=== PATIENT | male | born 1940 | race Caucasian/White ===

== ENCOUNTER 2016-05-26 16:09 | Emergency (ER) | payer MEDICARE, OTHER ==
--- NOTE | 2016-05-26 16:38 | ER Document Report ---
ED General <KATLIN KIM - Last Filed: 05/26/16 21:24> - General Mode of Arrival: Medic Information source: Relative Cannot obtain history due to: Dementia - and Alzheimer's - HPI Onset: Other - see narrative Quality of pain: No pain Recently seen / treated by doctor: Yes <OLIMPIA STRATTON - Last Filed: 05/26/16 21:54> - General Chief Complaint: Chest Pain Stated Complaint: RAPID HEART RATE Notes: Patient is a 75 year old male that presents to the emergency department today with complaints of vomiting and diarrhea which began prior to arrival. According to family at bedside, the patient was at a routine doctor's appointment today to be established as a new patient as they recently moved here , when he began having diarrhea/vomiting and he turned "sosa". Family reports that the provider at the PCPs office told them to come here to be evaluated. According to EMS, the patient was hypotensive and bradycardic on arrival. History is limited secondary to the patient's dementia and Alzheimer's. (OLIMPIA STRATTON) - Related Data Allergies/Adverse Reactions: lisinopril [Lisinopril] Allergy (Verified 04/15/12 13:50) Past Medical History - General Information source: Patient, Friend, H Records Cannot obtain history due to: Dementia - Alzheimer's - Social History Smoking Status: Former Smoker Cigarette use (# per day): No Frequency of alcohol use: None Drug Abuse: None Lives with: Family Family History: Reviewed & Not Pertinent - Past Medical History Cardiac Medical History: Reports: Hx Atrial Fibrillation, Hx Hypertension Pulmonary Medical History: Reports: Hx COPD Neurological Medical History: Reports: 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 according to Malignancy Medical History: Reports Other - bladder cancer GI Medical History: Reports: Hx Gastroesophageal Reflux Disease Psychiatric Medical History: Reports: Hx Dementia, Other - Alzheimer's Disease Past Surgical History: Reports: Hx Appendectomy <OLIMPIA STRATTON - Last Filed: 05/26/16 21:54> Review of Systems - Review of Systems Constitutional: No symptoms reported EENT: No symptoms reported Cardiovascular: See HPI, Other - hypotensive and bradycardic according to EMS Respiratory: No symptoms reported Gastrointestinal: See HPI, Diarrhea, Vomiting Genitourinary: No symptoms reported Male Genitourinary: No symptoms reported Musculoskeletal: No symptoms reported Skin: No symptoms reported Hematologic/Lymphatic: No symptoms reported Neurological/Psychological: No symptoms reported -: Yes All other systems reviewed and negative <VIRALSHAQOLIMPIA - Last Filed: 05/26/16 21:54> Physical Exam - General General appearance: Alert In distress: None - HEENT Head: Normocephalic, Atraumatic Eyes: Normal - Respiratory Respiratory status: No respiratory distress Chest status: Nontender Breath sounds: Normal - Cardiovascular Rhythm: Regular Heart sounds: Normal auscultation Murmur: No - Abdominal Distension: No distension Bowel sounds: Hyperactive Tenderness: Nontender - Extremities General upper extremity: Normal inspection, Nontender. No: Edema, Normal ROM General lower extremity: Normal inspection, Nontender. No: Edema, Normal ROM - Neurological Cognition: Other - pleasantly demented at baseline Speech: Normal - Psychological Associated symptoms: Normal affect, Normal mood - Skin Skin Temperature: Warm Skin Moisture: Dry Skin Color: Normal <VIRALOLIMPIA - Last Filed: 05/26/16 21:54> - Vital signs Vitals: Pulse Ox 95 05/26/16 16:20 Course - Laboratory Result Diagrams: 05/26/16 16:25 05/26/16 16:25 - Diagnostic Test Radiology reviewed: Image reviewed, Reports reviewed - Chest x-ray does not show an acute process - EKG Interpretation by Me EKG shows normal: Sinus rhythm, [place], Intervals, QRS Complexes, ST-T Waves Rate: Normal - 51 Rhythm: NSR <KATLIN KIM - Last Filed: 05/26/16 21:24> - Laboratory Result Diagrams: 05/26/16 16:25 05/26/16 16:25 <OLIMPIA STRATTON - Last Filed: 05/26/16 21:54> - Re-evaluation Re-evalutation: 05/26/16 21:24 Age and has had 2 L normal saline. The patient's heart rate is now up around 70. He has not had any diarrhea since he got here according to the family. The only logical explanation I can find for his symptoms are the episode of nausea vomiting diarrhea caused a vagal type reaction in the office, but the persistent bradycardia may well be due to an accidental extra dose of his atenolol. The family will be very careful by his medications. (KATLIN KIM) - Vital Signs Vital signs: Temp Pulse Resp BP Pulse Ox 14 139/56 H 98 05/26/16 20:01 05/26/16 20:01 05/26/16 20:01 - Laboratory Laboratory results interpreted by me: 05/26/16 05/26/16 05/26/16 16:25 16:25 17:40 Seg Neutrophils % 85.0 H Lymphocytes % 7.3 L Chloride 110 H Calcium 7.1 L Creatine Kinase 29 L Total Protein 4.6 L Albumin 2.3 L Urine Urobilinogen 2.0 H Discharge <KATLIN KIM - Last Filed: 05/26/16 21:24> <OLIMPIA STRATTON - Last Filed: 05/26/16 21:54> - Discharge Clinical Impression: Bradycardia Hypotension Qualifiers: Hypotension type: unspecified hypotension type Qualified Code(s): I95.9 - Hypotension, unspecified Diarrhea Qualifiers: Diarrhea type: unspecified type Qualified Code(s): R19.7 - Diarrhea, unspecified Dementia Qualifiers: Dementia type: Alzheimer's disease Alzheimer's disease onset: late-onset Dementia behavioral disturbance: without behavioral disturbance Qualified Code(s ): G30.1 - Alzheimer's disease with late onset Condition: Stable Disposition: HOME, SELF-CARE Additional Instructions: Continue his regular medication regimen. Drink plenty of fluids this evening. Follow-up with your primary care provider when you can make another appointment. RETURN TO THE EMERGENCY ROOM IF ANY NEW OR WORSENING SYMPTOMS. Scribe Attestation: 05/26/16 21:26 I personally performed the services described in the documentation, reviewed and edited the documentation which was dictated to the scribe in my presence, and it accurately records my words and actions. (KATLIN KIM) Scribe Documentation - Scribe Written by Rosemaryibenriqueta:: Yolanda Naik, 1755 05/26/16 acting as scribe for :: [place] <OLIMPIA STRATTON - Last Filed: 05/26/16 21:54>
[2016-05-26 16:57] LABS: ABSOLUTE LYMPHOCYTES (AUTO) 0.6 10^3/uL (0.5-4.7); ABSOLUTE MONOCYTES (AUTO) 0.5 10^3/uL (0.1-1.4); ABSOLUTE NEUT (AUTO) 6.6 10^3/uL (1.7-8.2); BASOPHILS % (AUTO) 0.5 % (0-2); EOSINOPHILS % (AUTO) 0.3 % (0-6); HEMATOCRIT 45.2 % (37.9-51.0); HEMOGLOBIN 14.6 g/dL (13.5-17.0); HGB HCT DIFFERENCE -1.4; LYMPHOCYTES % (AUTO) 7.3 % (13-45); MEAN CORPUSCULAR HEMOGLOBIN 31.2 pg (27.0-33.4); MEAN CORPUSCULAR HGB CONC 32.3 g/dL (32.0-36.0); MEAN CORPUSCULAR VOLUME 97 fl (80-97); MONOCYTES % (AUTO) 6.9 % (3-13); RED BLOOD COUNT 4.68 10^6/uL (4.35-5.55); RED CELL DISTRIBUTION WIDTH 13.1 % (11.5-14.0); WHITE BLOOD COUNT 7.8 10^3/uL (4.0-10.5)
[2016-05-26 17:00] LABS: ALANINE AMINOTRANSFERASE 24 U/L (21-72); ALBUMIN 2.3 g/dL (3.5-5.0); ALKALINE PHOSPHATASE 43 U/L (38-126); ANION GAP 8 (5-19); ASPARTATE AMINO TRANSFERASE 18 U/L (17-59); BILIRUBIN,TOTAL 0.9 mg/dL (0.2-1.3); BLOOD UREA NITROGEN 14 mg/dL (7-20); CALCIUM 7.1 mg/dL (8.4-10.2); CARBON DIOXIDE 24 mmol/L (22-30); CHLORIDE 110 mmol/L (98-107); CREATINE KINASE 29 U/L (55-170); CREATININE RESULT 0.99 mg/dL (0.52-1.25); GLUCOSE 103 mg/dL (75-110); MAGNESIUM 1.6 mg/dL (1.6-2.3); POTASSIUM 3.9 mmol/L (3.6-5.0); TOTAL PROTEIN 4.6 g/dL (6.3-8.2)
[2016-05-26 17:12] LABS: CREATINE KINASE MB 0.32 ng/mL (<4.55)
[2016-05-26 17:13] LABS: TROPONIN I < 0.012 ng/mL
[2016-05-26 18:02] LABS: APPEARANCE,URINE SLIGHTLY-CLOUDY; BILIRUBIN,URINE NEGATIVE (NEGATIVE); GLUCOSE, URINE NEGATIVE (NEGATIVE); KETONES,URINE NEGATIVE (NEGATIVE); LEUKOCYTE ESTERASE,URINE NEGATIVE (NEGATIVE); NITRITE,URINE NEGATIVE (NEGATIVE); PROTEIN,URINE NEGATIVE (NEGATIVE); URINE SPECIFIC GRAVITY 1.019
[2016-05-26] MEDS ORDERED: NORMAL SALINE 1000 ML 1,000 ML IV ONE (18:15)
[2016-05-26] MEDS ORDERED: RINGERS SOLUTION,LACTATED 1,000 ML IV ONE (19:26)
[2016-05-26 22:19] VITALS: BP 108/61
--- NOTE | 2016-05-27 18:42 | EKG REPORT ---
SEVERITY:- NORMAL ECG - SINUS RHYTHM : Confirmed by: Valeri Perrin MD 27-May-2016 18:41:45
== END 2016-05-26 22:20 | disposition home or self-care (01) ==
LOC: ER 16:09
DX: R00.1 Bradycardia, unspecified (principal); I95.9 Hypotension, unspecified; R11.10 Vomiting, unspecified; R19.7 Diarrhea, unspecified; G30.1 Alzheimer's disease with late onset; F02.80 Dementia in other diseases classified elsewhere, unspecified severity, without behavioral disturbance, psychotic disturbance, mood disturbance, and anxiety; I48.91 Unspecified atrial fibrillation; I10 Essential (primary) hypertension; I69.951 Hemiplegia and hemiparesis following unspecified cerebrovascular disease affecting right dominant side; K21.9 Gastro-esophageal reflux disease without esophagitis; Z87.891 Personal history of nicotine dependence
CPT/HCPCS: 99284; 96360; 36415; 87040; 82553; 82550; 83735; 85025; 80053; 81001; 84484; 71010; 93010; J7030; J7120

== ENCOUNTER 2016-10-11 23:15 | Emergency (ER) | payer MEDICARE, OTHER ==
[2016-10-11] MEDS ORDERED: ACETAMINOPHEN 325 MG TABLET ONE (23:50)
--- NOTE | 2016-10-11 23:57 | RADIOLOGY REPORT (SQ) ---
EXAM DESCRIPTION: CHEST SINGLE VIEW COMPLETED DATE/TIME: 10/11/2016 11:48 pm REASON FOR STUDY: r/o sepsis COMPARISON: 05/26/2016 EXAM PARAMETERS: NUMBER OF VIEWS: One view. TECHNIQUE: Single frontal radiographic view of the chest acquired. RADIATION DOSE: NA LIMITATIONS: None. FINDINGS: LUNGS AND PLEURA: No opacities, masses or pneumothorax. No pleural effusion. MEDIASTINUM AND HILAR STRUCTURES: No masses. Contour normal. HEART AND VASCULAR STRUCTURES: Heart normal in size. Normal vasculature. BONES: No acute findings. HARDWARE: None in the chest. OTHER: No other significant finding. IMPRESSION: NO ACUTE RADIOGRAPHIC FINDING IN THE CHEST. TECHNICAL DOCUMENTATION: JOB ID: [id number]
[2016-10-12] LABS: VENOUS BLOOD BASE EXCESS 1.7 mmol/L; VENOUS BLOOD HCO3 27.7 mmol/L (20-32); VENOUS BLOOD PCO2 48.4 mmHg (35-63); VENOUS BLOOD PH 7.38 (7.30-7.42)
[2016-10-12 00:01] LABS: HEMATOCRIT 47.3 % (37.9-51.0); HEMOGLOBIN 15.3 g/dL (13.5-17.0); HGB HCT DIFFERENCE -1.4; MEAN CORPUSCULAR HEMOGLOBIN 31.2 pg (27.0-33.4); MEAN CORPUSCULAR HGB CONC 32.3 g/dL (32.0-36.0); MEAN CORPUSCULAR VOLUME 97 fl (80-97); RED CELL DISTRIBUTION WIDTH 13.3 % (11.5-14.0); WHITE BLOOD COUNT 15.5 10^3/uL (4.0-10.5)
[2016-10-12 00:12] LABS: PROTHROMBIN TIME 16.6 SEC (11.4-15.4)
[2016-10-12] MEDS ORDERED: ACETAMINOPHEN 325 MG TABLET PO ONE (00:16)
[2016-10-12 00:18] LABS: ALANINE AMINOTRANSFERASE 25 U/L (21-72); ALBUMIN 3.7 g/dL (3.5-5.0); ALKALINE PHOSPHATASE 65 U/L (38-126); ANION GAP 11 (5-19); ASPARTATE AMINO TRANSFERASE 20 U/L (17-59); BILIRUBIN,DIRECT 0.3 mg/dL (0.0-0.4); BILIRUBIN,TOTAL 1.3 mg/dL (0.2-1.3); BLOOD UREA NITROGEN 15 mg/dL (7-20); CALCIUM 8.7 mg/dL (8.4-10.2); CARBON DIOXIDE 25 mmol/L (22-30); CHLORIDE 103 mmol/L (98-107); CREATININE RESULT 1.08 mg/dL (0.52-1.25); GLUCOSE 122 mg/dL (75-110); SODIUM 138.7 mmol/L (137-145); TOTAL PROTEIN 6.5 g/dL (6.3-8.2)
[2016-10-12 00:29] LABS: BAND NEUTROPHILS % (MANUAL) 3 % (3-5); BASOPHILS % (MANUAL) 0 % (0-2); EOSINOPHILS % (MANUAL) 0 % (0-6); LYMPHOCYTES % (MANUAL) 4 % (13-45); TOTAL CELLS COUNTED 100
[2016-10-12 00:33] LABS: PLATELET CLUMPS PRESENT; RBC MORPHOLOGY COMMENT NORMO-CYTIC/CHROMIC
[2016-10-12 01:04] LABS: APPEARANCE,URINE SLIGHTLY-CLOUDY; BILIRUBIN,URINE NEGATIVE (NEGATIVE); GLUCOSE, URINE NEGATIVE (NEGATIVE); KETONES,URINE NEGATIVE (NEGATIVE); LEUKOCYTE ESTERASE,URINE TRACE (NEGATIVE); NITRITE,URINE NEGATIVE (NEGATIVE); PROTEIN,URINE 100 mg/dL (NEGATIVE); UROBILINOGEN,URINE NEGATIVE mg/dL (<2.0)
[2016-10-12] MEDS ORDERED: CEFTRIAXONE 1 GM/D5W RTU 50 ML IV ONE (01:31)
--- NOTE | 2016-10-12 01:32 | ER Document Report ---
ED GI/ - General Chief Complaint: Fever Stated Complaint: ALTERED MENTAL STATUS Time Seen by Provider: 10/11/16 23:37 Notes: The patient is a 75-year-old male, past medical history Alzheimer's, A. fib (on Atenolol and Eliquiis, only takes sometimes), bladder cancer, presents with 1 day of foul-smelling urine and dysuria. He is also having a fever of 100.5 at home. According to his and daughter, his mental status is at baseline. He denies nausea, vomiting, diarrhea, constipation, chest pain, SOB or increased confusion. 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 RESPIRATORY: -cough, -SOB GASTROINTESTINAL: -abdominal pain, -nausea, -vomiting, -diarrhea GENITOURINARY: +dysuria, -hematuria MUSCULOSKELETAL: -back pain, -neck pain SKIN: -rash or skin lesions. HEMATOLOGIC: -easy bruising or bleeding. LYMPHATIC: -swollen, enlarged glands. NEUROLOGICAL: -altered mental status or loss of consciousness, -headache, - neurologic symptoms PSYCHIATRIC: -anxiety, -depression. ALL OTHER SYSTEMS REVIEWED AND NEGATIVE. Physical Exam - Vital signs Vitals: Temp Resp BP Pulse Ox 99.7 F 15 148/110 H 97 10/11/16 23:25 10/11/16 23:25 10/11/16 23:25 10/11/16 23:25 - Notes Notes: PHYSICAL EXAMINATION: GENERAL: Well-appearing, well-nourished and in no acute distress. HEAD: Atraumatic, normocephalic. EYES: Pupils equal round and reactive to light, extraocular movements intact, sclera anicteric, conjunctiva are normal. ENT: nares patent, oropharynx clear without exudates. Moist mucous membranes. NECK: Normal range of motion, supple without lymphadenopathy LUNGS: Breath sounds clear to auscultation bilaterally and equal. No wheezes rales or rhonchi. HEART: Regular rate and rhythm without murmurs ABDOMEN: Soft, nontender, normoactive bowel sounds. No guarding, no rebound. No masses appreciated. EXTREMITIES: Normal range of motion, no pitting or edema. No cyanosis. NEUROLOGICAL: Mildly confused. Slow to respond (baseline, according to and daughter) PSYCH: Normal mood, normal affect. SKIN: Warm, Dry, normal turgor, no rashes or lesions noted. Course - Re-evaluation Re-evalutation: Pt with evidence of UTI/Pyelonephritis. After IV fluids and antibiotics, offered patient admission for further IV antibiotics and treatment. Using shared decision making with her daughter, and patient, they would like to try antibiotics by mouth because his mental status is at baseline. Pt vomited after Pyridium, but feels better after Zofran. Will send home with Zofran and Pyridium. Given strict return precautions and he understands. - Vital Signs Vital signs: Temp Pulse Resp BP Pulse Ox 99.7 F 14 183/122 H 97 10/11/16 23:25 10/12/16 01:00 10/12/16 00:33 10/12/16 01:00 - Laboratory Result Diagrams: 10/11/16 23:33 10/11/16 23:33 Laboratory results interpreted by me: 10/11/16 10/11/16 10/11/16 23:33 23:33 23:33 WBC 15.5 H Seg Neuts % (Manual) 90 H Lymphocytes % (Manual) 4 L Monocytes % (Manual) 2 L Abs Neuts (Manual) 14.4 H PT 16.6 H Glucose 122 H Urine Protein Urine Blood Ur Leukocyte Esterase 10/12/16 00:18 WBC Seg Neuts % (Manual) Lymphocytes % (Manual) Monocytes % (Manual) Abs Neuts (Manual) PT Glucose Urine Protein 100 H Urine Blood LARGE H Ur Leukocyte Esterase TRACE H - Diagnostic Test Radiology reviewed: Image reviewed, Reports reviewed Radiology results interpreted by me: CXR: NAD - EKG Interpretation by Me EKG shows normal: Emmalena, Intervals, QRS Complexes Rate: Tachycardia - 102 Rhythm: A.Fib Discharge - Discharge Clinical Impression: UTI (urinary tract infection) Qualifiers: Urinary tract infection type: site unspecified Hematuria presence: without hematuria Qualified Code(s): N39.0 - Urinary tract infection, site not specified Condition: Stable Disposition: HOME, SELF-CARE Additional Instructions: PYELONEPHRITIS: Your evaluation shows evidence of pyelonephritis. This is an infection in the kidney. Typical symptoms are fever, pain in the flank, pain on urination, and frequent urination. Many cases of pyelonephritis can be treated at home. Hospital care may be necessary for patients who are very ill, or elderly or . Pyelonephritis is treated with antibiotics. Be sure to take all the medication as prescribed. Drink plenty of liquids (about three quarts per day) . You may take acetaminophen for fever. You should feel significantly improved within two days. You should have a recheck of your urine in about one week to insure that the infection is gone. Return for a re-examination if your symptoms worsen in any way -- such as high fever, shaking chills, severe weakness or dizziness, severe pain, or inability to pass your urine. ANTINAUSEA MEDICATION: You have been given a medication to suppress nausea and vomiting. This type of medication can be given as a shot, pill, or suppository. It will usually last for many hours. Pills and shots usually last six to eight hours, suppositories last about 12 hours. For the typical illness, only one or two doses of the medication may be necessary. Mild lightheadedness may occur. This type of medicine can cause drowsiness. Do not drive or operate dangerous machinery while under its influence. Do not mix with alcohol. See your doctor at once if you have muscle spasms or tightness, or uncontrollable motions (particularly of the neck, mouth, or jaw). Persistent vomiting or severe lightheadedness should also be evaluated by the physician. ANTIBIOTIC THERAPY: You have been given an antibiotic prescription. It's important that you take all the medication, unless instructed otherwise by your physician. Failure to complete the entire course can result in relapse of your condition. Common side effects of antibiotics include nausea, intestinal cramping, or diarrhea. Women may develop vaginal yeast infections, and babies can get yeast (thrush) in the mouth following the use of antibiotics. Contact your physician if you develop significant side effects from this medication. Allergy to this antibiotic can result in hives, wheezing, faintness, or itching. If symptoms of allergy occur, stop the medication and call the doctor. ROCEPHIN: You have been given an injection of an antibiotic called Rocephin ( ceftriaxone). Sometimes the injection must be combined with antibiotic pills. For some infections, such as an uncomplicated ear infection, Rocephin provides all the antibiotic that's needed. The antibiotic will be in your body for about two days. For serious infections, we usually repeat doses of Rocephin daily. Side effects are very unusual following a shot. Women may develop vaginal yeast infections, and babies can get yeast (thrush) in the mouth following the use of antibiotics. Contact your physician if you have symptoms with this medication. Allergy to this antibiotic can result in hives, wheezing, faintness, or itching. If symptoms of allergy occur, call the doctor at once. CEPHALEXIN: The antibiotic you've been prescribed is a member of the cephalosporin class. This type of antibiotic covers a wide variety of infections, including those of the skin, lungs, and urinary tract. It's useful for staph infections. This antibiotic is slightly similar to the penicillin family. In rare cases , a person who is allergic to penicillin will also be allergic to this medication. If you have had a severe allergic reaction to penicillin, and have not taken this antibiotic since that time, notify your doctor. Antibiotics which cover many germs ("broad spectrum" antibiotics) are more likely to cause diarrhea or "yeast" infections. Women prone to vaginal yeast problems may suffer an attack after taking this antibiotic. In infants, oral thrush (white spots "stuck" on the cheek) or yeast diaper rash may result. See your doctor if these problems occur. Call at once if you develop itching, hives , shortness of breath, or lightheadedness. USE OF ACETAMINOPHEN (Tylenol): Acetaminophen may be taken for pain relief or fever control. It's much safer than aspirin, offering a wider range of "safe" dosages. It is safe during . Some brand names are Tylenol, Panadol, Datril, Anacin 3, Tempra, and Liquiprin. Acetaminophen can be repeated every four hours. The following are maximum recommended dosages: >89 pounds or adults 650 mg to 900 mg Acetaminophen can be repeated every four hours. Maximum dose not to exceed 4000 mg a day. FOLLOW-UP CARE: If you have been referred to a physician for follow-up care, call the physician s office for an appointment as you were instructed or within the next two days. If you experience worsening or a significant change in your symptoms, notify the physician immediately or return to the Emergency Department at any time for re-evaluation. Prescriptions: Cephalexin Monohydrate [Keflex 500 mg Capsule] 500 mg PO Q8H #30 capsule Ondansetron [Zofran Odt 4 mg Tablet] 1 - 2 tab PO Q4H PRN #15 tab.rapdis PRN Reason: For Nausea/Vomiting Phenazopyridine HCl [Pyridium 200 mg Tablet] 200 mg PO TID #15 tablet Referrals: FLORES MCNAMARA [Primary Care Provider] - Follow up as needed
[2016-10-12] MEDS ORDERED: PHENAZOPYRIDINE HCL 200 MG TABLET PO ONE (01:34)
[2016-10-12] MEDS ORDERED: NORMAL SALINE 1000 ML 1,000 ML IV ONE (01:34)
[2016-10-12] MEDS ORDERED: ONDANSETRON HCL INJ/PF 4 MG/2 ML SDV IV ONE (02:51)
[2016-10-12 03:16] VITALS: BP 105/79
[2016-10-12] MEDS ORDERED: ONDANSETRON ODT 4 MG TAB (6 TAB/DSPK) PO PRN (03:20)
--- NOTE | 2016-10-13 09:50 | EKG REPORT ---
SEVERITY:- ABNORMAL ECG - ATRIAL FIBRILLATION LAD, CONSIDER LEFT ANTERIOR FASCICULAR BLOCK : Confirmed by: Juan A Hardin 13-Oct-2016 09:50:16
== END 2016-10-12 03:30 | disposition home or self-care (01) ==
LOC: ER 23:15
DX: N12 Tubulo-interstitial nephritis, not specified as acute or chronic (principal); G30.9 Alzheimer's disease, unspecified; F02.80 Dementia in other diseases classified elsewhere, unspecified severity, without behavioral disturbance, psychotic disturbance, mood disturbance, and anxiety; R00.0 Tachycardia, unspecified; I48.91 Unspecified atrial fibrillation; I10 Essential (primary) hypertension; J44.9 Chronic obstructive pulmonary disease, unspecified; Z85.51 Personal history of malignant neoplasm of bladder; Z88.8 Allergy status to other drugs, medicaments and biological substances
CPT/HCPCS: 93005; 99284; 96375; 96365; 36415; 87040; 87086; 85025; 85610; 87077; 87088; 80053; 81001; 87186; 82803; 83605; 71010; 93010; A9270 ×2; J2405; J7030; J0696; J3490

== ENCOUNTER 2016-10-22 22:35 | Emergency (ER) | payer MEDICARE, OTHER ==
[2016-10-22 23:06] LABS: ABSOLUTE BASOPHILS # (AUTO) 0.1 10^3/uL (0.0-0.2); ABSOLUTE EOSINOPHILS # (AUTO) 0.1 10^3/uL (0.0-0.6); ABSOLUTE LYMPHOCYTES (AUTO) 1.2 10^3/uL (0.5-4.7); ABSOLUTE MONOCYTES (AUTO) 0.5 10^3/uL (0.1-1.4); ABSOLUTE NEUT (AUTO) 7.6 10^3/uL (1.7-8.2); BASOPHILS % (AUTO) 1.4 % (0-2); EOSINOPHILS % (AUTO) 1.4 % (0-6); HEMATOCRIT 42.8 % (37.9-51.0); HEMOGLOBIN 14.1 g/dL (13.5-17.0); HGB HCT DIFFERENCE -0.5; LYMPHOCYTES % (AUTO) 12.1 % (13-45); MEAN CORPUSCULAR HEMOGLOBIN 31.2 pg (27.0-33.4); MEAN CORPUSCULAR VOLUME 95 fl (80-97); RED BLOOD COUNT 4.53 10^6/uL (4.35-5.55); SEGMENTED NEUTROPHILS % (AUTO) 80.1 % (42-78); WHITE BLOOD COUNT 9.5 10^3/uL (4.0-10.5)
--- NOTE | 2016-10-22 23:14 | ER Document Report ---
ED General - General Stated Complaint: ISSUES WITH STOOL/WEAKNESS Time Seen by Provider: 10/22/16 22:58 Notes: Patient is a 75-year-old male with a history of severe dementia and Alzheimer' s. He lives with his . The daughter also helps care for the patient. He was seen here approximately week ago and placed on antibiotics for UTI. Recently has been having diarrhea. Today the noticed a small amount of blood in the stool and some mucus in the stool. He has been weak and has not been eating or drinking very much. They therefore brought him to the ER. No fevers at home. No vomiting. He has intermittently complained of lower abdominal pain. did give him Immodium earlier today because of the diarrhea. 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 Denies recent illness. RESPIRATORY: Denies cough, cold, or chest congestion. Denies shortness of breath, difficulty breathing, or wheezing. GASTROINTESTINAL: Lower abdominal pain. Diarrhea. GENITOURINARY: Denies difficulty urinating, painful urination, burning, frequency, or blood in urine. MUSCULOSKELETAL: Denies neck or back pain or joint pain or swelling. SKIN: Denies rash or skin lesions. NEUROLOGICAL: Denies altered mental status or loss of consciousness. Denies headache. Denies weakness or paralysis or loss of use of either side. Denies problems with gait or speech. Denies sensory or motor loss. ALL OTHER SYSTEMS REVIEWED AND NEGATIVE. Physical Exam - Vital signs Vitals: Resp Pulse Ox 13 95 10/22/16 22:54 10/22/16 22:54 - Notes Notes: General Appearance: Well nourished, alert, cooperative, no acute distress, no obvious discomfort. Vitals: reviewed, See vital signs table. Head: no swelling or tenderness to the head Eyes: PERRL, EOMI, Conjuctiva clear Mouth: No decreasd moisture Lungs: No wheezing, No rales, No rhonci, No accessory muscle use, good air exchange bilaterally. Heart: Normal rate, Regular rythm, No murmur, no rub Abdomen: Normal BS, soft, No rigidity, No abdominal tenderness, No guarding, no rebound, no abdominal masses, no organomegaly Extremities: strength 5/5 in all extremities, good pulses in all extremities, no swelling or tenderness in the extremities, no edema. Skin: warm, dry, appropriate color, no rash Neuro: speech clear, oriented x 1, she does not answer questions appropriately because of severe dementia. No focal neurologic deficits on exam. He will follow commands. Course - Vital Signs Vital signs: Temp Pulse Resp BP Pulse Ox 99 F 53 L 16 161/64 H 96 10/22/16 23:00 10/22/16 23:00 10/23/16 01:00 10/23/16 01:01 10/23/16 01:01 - Laboratory Result Diagrams: 10/22/16 22:55 10/22/16 22:55 Laboratory results interpreted by me: 10/22/16 10/22/16 22:55 22:55 Seg Neutrophils % 80.1 H Lymphocytes % 12.1 L Potassium 3.3 L Total Protein 6.0 L Albumin 3.3 L - EKG Interpretation by Me Additional EKG results interpreted by me: 10/22/16 23:27 EKG is reviewed and interpreted by me. EKG shows sinus bradycardia with a rate of [address] segment elevation or depression. No new ischemic changes comparison to his previous EKG from May 26, 2016. NM interval, QRS duration , QTc intervals are within normal range. 10/22/16 23:29 - Transfer of Care Notes: 10/23/16 01:18 Patient has C. difficile diarrhea. I did speak with the and daughter. I will have him stop the Keflex. I will give him Flagyl. I will give him the first dose of Flagyl here to the IV. The is very exhausted and tired because she has been awake though over the last 12 hours. I informed her that she can go home and get some rest and that she can come back first in the morning to pick him up for discharge. She is appreciative of this. Discharge - Discharge Clinical Impression: C. difficile diarrhea, Hypokalemia Condition: Good Disposition: HOME, SELF-CARE Additional Instructions: Please be sure to wash your hands thoroughly after helping or cleaning patient as C.Diff is contagious. Please bring Mr. Webb back to the ER immediately if he develop fevers, vomiting, worsening abdominal pain, or appears unwell. Please stop taking the Keflex. Please follow up with your doctor Thursday or Thursday. Please inform his home health care providers of the c.diff infection so they take precautions not to spread the infection. Prescriptions: Metronidazole [Flagyl 500 mg Tablet] 500 mg PO Q6H #28 tablet
[2016-10-22 23:24] LABS: ALANINE AMINOTRANSFERASE 35 U/L (21-72); ALBUMIN 3.3 g/dL (3.5-5.0); ALKALINE PHOSPHATASE 65 U/L (38-126); ANION GAP 10 (5-19); ASPARTATE AMINO TRANSFERASE 18 U/L (17-59); BILIRUBIN,DIRECT 0.3 mg/dL (0.0-0.4); BILIRUBIN,TOTAL 0.9 mg/dL (0.2-1.3); BLOOD UREA NITROGEN 12 mg/dL (7-20); CALCIUM 8.9 mg/dL (8.4-10.2); CARBON DIOXIDE 29 mmol/L (22-30); CHLORIDE 100 mmol/L (98-107); CREATININE RESULT 1.08 mg/dL (0.52-1.25); GLUCOSE 104 mg/dL (75-110); POTASSIUM 3.3 mmol/L (3.6-5.0); SODIUM 138.6 mmol/L (137-145)
[2016-10-23 00:12] LABS: APPEARANCE,URINE TURBID; BILIRUBIN,URINE NEGATIVE (NEGATIVE); GLUCOSE, URINE NEGATIVE (NEGATIVE); KETONES,URINE NEGATIVE (NEGATIVE); LEUKOCYTE ESTERASE,URINE NEGATIVE (NEGATIVE); NITRITE,URINE NEGATIVE (NEGATIVE); PROTEIN,URINE NEGATIVE (NEGATIVE); URINE SPECIFIC GRAVITY 1.031; UROBILINOGEN,URINE NEGATIVE mg/dL (<2.0)
[2016-10-23] MEDS ORDERED: METRONIDAZOLE 500 MG/NS RTU 100 ML IV ONE (01:13)
[2016-10-23] MEDS ORDERED: POTASSIUM CHLORIDE 10 MEQ TABLET.SA PO ONE ×2 (01:34)
[2016-10-23 07:02] VITALS: BP 156/75
--- NOTE | 2016-10-23 10:47 | EKG REPORT ---
SEVERITY:- ABNORMAL ECG - SINUS RHYTHM NONSPECIFIC T ABNORMALITIES, ANTERIOR LEADS : Confirmed by: Valeri Perrin MD 23-Oct-2016 10:46:12
== END 2016-10-23 07:02 | disposition home or self-care (01) ==
LOC: ER 22:35
DX: A04.7 Enterocolitis due to Clostridium difficile (principal); E87.6 Hypokalemia; R53.1 Weakness; G30.9 Alzheimer's disease, unspecified; F02.80 Dementia in other diseases classified elsewhere, unspecified severity, without behavioral disturbance, psychotic disturbance, mood disturbance, and anxiety; R19.7 Diarrhea, unspecified; R19.5 Other fecal abnormalities; R10.30 Lower abdominal pain, unspecified
CPT/HCPCS: 93005; 99284; 96365; 36415; 83735; 85025; 80053; 81001; 87493 ×2; 93010; A9270; 87205

== ENCOUNTER 2016-11-18 09:29 | Inpatient (IN) | payer MEDICARE, OTHER ==
[~2016-11-18 09:29] MED LIST: METRONIDAZOLE 500 MG TABLET PO SCH; VANCOMYCIN HCL INJ 500 MG VIAL PO SCH
[2016-11-18] MEDS ORDERED: NORMAL SALINE 1000 ML 1,000 ML IV ONE ×2 (09:45→16:13)
--- NOTE | 2016-11-18 09:45 | ER Document Report ---
ED GI/ - General Chief Complaint: Loose Stools Stated Complaint: BLOOD IN STOOL Time Seen by Provider: 11/18/16 09:40 Mode of Arrival: Medic Information source: Relative Notes: Patient is a 76-year-old male with dementia who presents today via EMS for bloody stools with mucus. Patient was diagnosed with C. difficile last month and put on Flagyl, does state that he did finish all that. She has been caring for him at home where they live. states that he will not eat or drink and is weak. She states that he never stopped having bloody and mucousy stools. He is also complaining of abdominal pain that he is complained of since being diagnosed with C. difficile per . She denies he has had any fevers or other complaints. - Related Data Allergies/Adverse Reactions: lisinopril [Lisinopril] Allergy (Verified 04/15/12 13:50) Home Medications: Current Home Medications Apixaban [Eliquis 5 mg Tablet] 5 mg PO Q12 11/18/16 [History] Atenolol [Tenormin] 25 mg PO DAILY 11/18/16 [History] Donepezil HCl [Aricept] 10 mg PO DAILY 11/18/16 [History] Fluoxetine HCl [Prozac 20 mg Capsule] 20 mg PO DAILY 11/18/16 [History] Pravastatin Sodium [Pravachol] 80 mg PO DAILY 11/18/16 [History] RX: Omeprazole 20 mg PO DAILY 11/18/16 [History] Tamsulosin HCl [Flomax 0.4 mg Cap.sr] 0.4 mg PO DAILY 11/18/16 [History] Past Medical History - General Information source: Relative - Social History Smoking Status: Unknown if Ever Smoked Family History: Reviewed & Not Pertinent - Past Medical History Cardiac Medical History: Reports: Hx Atrial Fibrillation, Hx Hypercholesterolemia, Hx Hypertension Pulmonary Medical History: Reports: Hx COPD Neurological Medical History: Reports: 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 according to GI Medical History: Reports: Hx Gastroesophageal Reflux Disease Psychiatric Medical History: Reports: Hx Dementia Past Surgical History: Reports: Hx Appendectomy Review of Systems - Review of Systems Constitutional: No symptoms reported EENT: No symptoms reported Cardiovascular: No symptoms reported Respiratory: No symptoms reported Gastrointestinal: See HPI Genitourinary: No symptoms reported Male Genitourinary: No symptoms reported Musculoskeletal: No symptoms reported Skin: No symptoms reported Hematologic/Lymphatic: No symptoms reported Neurological/Psychological: See HPI Physical Exam - Vital signs Vitals: Temp Pulse BP Pulse Ox 97.8 F 64 140/86 H 96 11/18/16 09:45 11/18/16 09:45 11/18/16 09:45 11/18/16 09:45 - Notes Notes: PHYSICAL EXAMINATION: GENERAL: Elderly, demented, weak, but in no acute distress. HEAD: Atraumatic, normocephalic. EYES: Pupils equal round and reactive to light, extraocular movements intact, sclera anicteric, conjunctiva are normal. ENT: ear canals without erythema or foreign body, TMs pearly hopkins with good bony landmarks, nares patent, oropharynx clear without exudates. Moist mucous membranes. NECK: Normal range of motion, supple without lymphadenopathy LUNGS: CTAB and equal. No wheezes rales or rhonchi. HEART: Regular rate and rhythm without murmurs ABDOMEN: Soft, right upper quadrant, right lower quadrant, periumbilical tenderness. No guarding, no rebound BACK: no vertebral tenderness, normal ROM GI/: no CVA tenderness EXTREMITIES: Normal range of motion, no pitting edema. No cyanosis. NEUROLOGICAL: Cranial nerves grossly intact. Normal sensory/motor exams. PSYCH: Normal mood, normal affect. SKIN: Warm, Dry, normal turgor, no rashes or lesions noted Course - Re-evaluation Re-evalutation: 11/19/16 12:07 Patient is positive for, patient also has a UTI. Patient is not wanting to eat or drink at home per C. difficile, he does appear dry on lab work today. I have discussed this with my attending and Dr. Gross, hospitalist agreed to admit patient for IV fluids, IV antibiotics for the C. difficile and UTI. - Vital Signs Vital signs: Temp Pulse Resp BP Pulse Ox 98.4 F 60 18 144/61 H 99 11/19/16 11:57 11/19/16 11:57 11/19/16 11:57 11/19/16 11:57 11/19/16 11:57 - Laboratory Result Diagrams: 11/19/16 04:28 11/19/16 04:28 Laboratory results interpreted by me: 11/18/16 11/18/16 11/18/16 10:10 11:03 15:10 Lymphocytes % 10.9 L Chloride 108 H AST 15 L Total Protein 5.6 L Albumin 3.1 L Urine Ketones 80 H Urine Blood LARGE H Ur Leukocyte Esterase SMALL H Discharge - Discharge Clinical Impression: C. difficile diarrhea UTI (urinary tract infection) Qualifiers: Urinary tract infection type: site unspecified Hematuria presence: with hematuria Qualified Code(s): N39.0 - Urinary tract infection, site not specified Dementia Qualifiers: Dementia type: unspecified type Dementia behavioral disturbance: with behavioral disturbance Qualified Code(s): F03.91 - Unspecified dementia with behavioral disturbance Condition: Stable Disposition: ADMITTED INPATIENT Admitting Provider: Hospitalist Unit Admitted: Telemetry
[2016-11-18 10:37] LABS: ABSOLUTE EOSINOPHILS # (AUTO) 0.1 10^3/uL (0.0-0.6); ABSOLUTE LYMPHOCYTES (AUTO) 0.8 10^3/uL (0.5-4.7); ABSOLUTE MONOCYTES (AUTO) 0.7 10^3/uL (0.1-1.4); ABSOLUTE NEUT (AUTO) 5.6 10^3/uL (1.7-8.2); BASOPHILS % (AUTO) 0.6 % (0-2); EOSINOPHILS % (AUTO) 1.8 % (0-6); HEMATOCRIT 45.5 % (37.9-51.0); HEMOGLOBIN 14.8 g/dL (13.5-17.0); HGB HCT DIFFERENCE -1.1; LYMPHOCYTES % (AUTO) 10.9 % (13-45); MEAN CORPUSCULAR HEMOGLOBIN 30.8 pg (27.0-33.4); MEAN CORPUSCULAR HGB CONC 32.4 g/dL (32.0-36.0); MEAN CORPUSCULAR VOLUME 95 fl (80-97); MONOCYTES % (AUTO) 9.8 % (3-13); RED CELL DISTRIBUTION WIDTH 13.7 % (11.5-14.0); SEGMENTED NEUTROPHILS % (AUTO) 76.9 % (42-78); WHITE BLOOD COUNT 7.3 10^3/uL (4.0-10.5)
[2016-11-18 11:35] LABS: ALANINE AMINOTRANSFERASE 22 U/L (21-72); ALBUMIN 3.1 g/dL (3.5-5.0); ALKALINE PHOSPHATASE 53 U/L (38-126); ANION GAP 11 (5-19); ASPARTATE AMINO TRANSFERASE 15 U/L (17-59); BILIRUBIN,DIRECT 0.4 mg/dL (0.0-0.4); BLOOD UREA NITROGEN 9 mg/dL (7-20); CALCIUM 8.4 mg/dL (8.4-10.2); CARBON DIOXIDE 23 mmol/L (22-30); CHLORIDE 108 mmol/L (98-107); CREATININE RESULT 0.93 mg/dL (0.52-1.25); GLUCOSE 91 mg/dL (75-110); POTASSIUM 3.7 mmol/L (3.6-5.0); SODIUM 141.8 mmol/L (137-145); TOTAL PROTEIN 5.6 g/dL (6.3-8.2)
--- NOTE | 2016-11-18 14:14 | RADIOLOGY REPORT (SQ) ---
EXAM DESCRIPTION: CT ABD/PELVIS WITH IV ONLY COMPLETED DATE/TIME: 11/18/2016 1:45 pm REASON FOR STUDY: c diff, diagnosed last month, abd pain COMPARISON: None. TECHNIQUE: CT scan of the abdomen and pelvis performed using helical scanning technique with dynamic intravenous contrast injection. No oral contrast. Images reviewed with lung, soft tissue, and bone windows. Reconstructed coronal and sagittal MPR images reviewed. Delayed images for evaluation of the urinary system also acquired. All images stored on PACS. All CT scanners at this facility use dose modulation, iterative reconstruction, and/or weight based d osing when appropriate to reduce radiation dose to as low as reasonably achievable (ALARA). [facility]: Dose Right [facility]: CareDose [facility]: Dose Right [facility]: Teradose 4D [facility]: Graftys CONTRAST TYPE AND DOSE: contrast/concentration: Isovue 370.00 mg/ml; Total Contrast Delivered: 100.0 ml; Total Saline Delivered: 49.1 ml RENAL FUNCTION: Creatinine 0.93 RADIATION DOSE: Up-to-date CT equipment and radiation dose reduction techniques were employed. CTDIv ol: 8.8 - 12.8 mGy. DLP: 1108 mGy-cm.. LIMITATIONS: None. FINDINGS: LOWER CHEST: No significant findings. No nodules or infiltrates. Hiatal hernia LIVER: Normal size. No masses. No dilated ducts. SPLEEN: Normal size. No focal lesions. PANCREAS: No masses. No significant calcifications. No adjacent inflammation or peripancreatic fluid collections. Pancreatic duct not dilated. GALLBLADDER: No identified stones by CT criteria. No inflammatory changes to suggest cholecystitis. ADRENAL GLANDS: No significant masses or asymmetry. RIGHT KIDNEY AND URETER: No solid masses. No significant calcifications. No hydronephrosis or hyd roureter. LEFT KIDNEY AND URETER: No solid masses. No significant calcifications. No hydronephrosis or hydr oureter. AORTA AND VESSELS: No aneurysm. No dissection. Renal arteries, SMA, celiac without stenosis. RETROPERITONEUM: No retroperitoneal adenopathy, hemorrhage or masses. BOWEL AND PERITONEAL CAVITY: No masses or inflammatory changes. No free fluid or peritoneal masses. Colonic diverticuli are present without CT signs of acute diverticulitis. There is no pericolic fat inflammatory change given history of C difficile colitis APPENDIX: Surgically absent PELVIS: No mass. No free fluid. Normal bladder. ABDOMINAL WALL: No masses. Old repaired right inguinal hernia. Persistent fat containing left ingui nal hernia. BONES: No significant or acute findings. OTHER: No other significant finding. IMPRESSION: NO SIGNIFICANT OR ACUTE FINDING IN THE ABDOMEN OR PELVIS ON CT SCAN WITH IV CONTRAST. TECHNICAL DOCUMENTATION: JOB ID: [id number] Quality ID # [id number]: Final reports with documentation of one or more dose reduction techniques (e.g., Au tomated exposure control, adjustment of the mA and/or kV according to patient size, use of iterative reconstruction technique) 2010 [email or web address] All Rights Reserved
[2016-11-18 15:28] LABS: APPEARANCE,URINE CLEAR; BILIRUBIN,URINE NEGATIVE (NEGATIVE); GLUCOSE, URINE NEGATIVE (NEGATIVE); KETONES,URINE 80 mg/dL (NEGATIVE); LEUKOCYTE ESTERASE,URINE SMALL (NEGATIVE); NITRITE,URINE NEGATIVE (NEGATIVE); PROTEIN,URINE NEGATIVE (NEGATIVE); UROBILINOGEN,URINE NEGATIVE mg/dL (<2.0)
[2016-11-18 15:35] LABS: URINE SPECIFIC GRAVITY > 1.060
[2016-11-18] MEDS ORDERED: ACETAMINOPHEN 325 MG TABLET PO PRN (16:48)
[2016-11-18] MEDS ORDERED: ONDANSETRON 4 MG TAB.RAPDIS PO PRN (16:48)
[2016-11-18] MEDS ORDERED: ONDANSETRON HCL INJ/PF 4 MG/2 ML SDV IV PRN (16:48)
[2016-11-18] MEDS ORDERED: ALBUTEROL SULFATE 0.083% NEB 2.5 MG/3 ML AMPUL NEB PRN (16:48)
--- NOTE | 2016-11-18 17:12 | PDOC H&P ---
History of Present Illness Admission Date/PCP: 11/18/16 16:37 Patient complains of: Worsening mental status and anorexia History of Present Illness: AUTUMN MELCHOR is a 76 year old male who has dementia baseline who was brought in by his with a 7 day history of anorexia and worsening abdominal pain. Patient was seen several weeks ago and sent home with antibiotics for C. difficile colitis. Patient has been taking antibiotics but is continued to have diarrhea and over the last 7 days has had decreased p.o. intake. Patient' s also reports is been more combative and has stopped eating or drinking. He has not had any fevers or chills but has had some rigors in the evening. Patient also was noted to have a urinary tract infection when an I&O catheter was placed. The patient has been taking Flagyl 500 mg every 6 hours. The patient has not had any bloody stool. Has had lower abdominal pain. He had an abdominal CT scan done in the emergency room which showed no abnormalities. Past Medical History Cardiac Medical History: Reports: Atrial Fibrillation, Hyperlipidema, Hypertension Pulmonary Medical History: Reports: Chronic Obstructive Pulmonary Disease (COPD) EENT Medical History: Reports: None Neurological Medical History: Reports: Ischemic CVA Endocrine Medical History: Reports: None Renal/ Medical History: Reports: None Malignancy Medical History: Reports: Other - Bladder cancer status post TURB GI Medical History: Reports: Gastroesophageal Reflux Disease Psychiatric Medical History: Reports: Dementia Traumatic Medical History: Reports: None Hematology: Reports: None Infectious Medical History: Reports: Clostridium Difficile Past Surgical History Past Surgical History: Reports: Appendectomy, Other - TURB for bladder cancer Social History Information Source: Relative Lives with: Spouse/Significant other Smoking Status: Former Smoker Frequency of Alcohol Use: None Hx Recreational Drug Use: No Drugs: None Hx Prescription Drug Abuse: No - Advance Directive Resuscitation Status: Do Not Resuscitate Surrogate healthcare decision maker:: His Family History Family History: Father at age 84 from dementia and heart disease. Mother at a young age from suicide Parental Family History Reviewed: Yes Children Family History Reviewed: No Sibling(s) Family History Reviewed.: No Medication/Allergy Allergies/Adverse Reactions: lisinopril [Lisinopril] Allergy (Verified 04/15/12 13:50) Review of Systems Constitutional: PRESENT: anorexia. ABSENT: fever(s), weight gain, weight loss Eyes: ABSENT: visual disturbances Ears: ABSENT: hearing changes Cardiovascular: ABSENT: chest pain, dyspnea on exertion, edema, orthropnea, palpitations Respiratory: ABSENT: cough, hemoptysis Gastrointestinal: PRESENT: abdominal pain, diarrhea, nausea. ABSENT: heartburn , melena, vomiting Genitourinary: PRESENT: dysuria. ABSENT: hematuria Neurological: ABSENT: abnormal gait, abnormal speech, confusion, dizziness, focal weakness, syncope Psychiatric: ABSENT: anxiety, depression Endocrine: ABSENT: cold intolerance, heat intolerance, polydipsia, polyuria Hematologic/Lymphatic: ABSENT: easy bleeding, easy bruising Physical Exam General appearance: PRESENT: no acute distress Head exam: PRESENT: atraumatic, normocephalic Eye exam: PRESENT: conjunctiva pink, EOMI, PERRLA. ABSENT: scleral icterus Ear exam: PRESENT: normal external ear exam Mouth exam: PRESENT: moist, tongue midline Neck exam: ABSENT: carotid bruit, JVD, lymphadenopathy, thyromegaly Respiratory exam: PRESENT: clear to auscultation preston. ABSENT: rales, rhonchi, wheezes Cardiovascular exam: PRESENT: RRR. ABSENT: diastolic murmur, rubs, systolic murmur Pulses: PRESENT: normal dorsalis pedis pul GI/Abdominal exam: PRESENT: normal bowel sounds, soft, tenderness - Suprapubic tenderness. ABSENT: distended, guarding, mass, organolmegaly, rebound Rectal exam: PRESENT: deferred Extremities exam: ABSENT: calf tenderness, clubbing, pedal edema Neurological exam: PRESENT: awake, oriented to person, oriented to place, CN II- XII grossly intact, motor sensory deficit - Right arm strength is 4 out of 5 right arm. ABSENT: oriented to time, oriented to situation Psychiatric exam: PRESENT: flat affect Skin exam: PRESENT: dry, intact, warm. ABSENT: cyanosis, rash Results Impressions: Abdomen/Pelvis CT 11/18/16 10:17 IMPRESSION: NO SIGNIFICANT OR ACUTE FINDING IN THE ABDOMEN OR PELVIS ON CT SCAN WITH IV CONTRAST. Assessment & Plan - Diagnosis (1) Encephalopathy Is this a current diagnosis for this admission?: YesPlan: The patient has dementia baseline but has gotten worse over the last week. He is noted to have a urinary tract infection as well as C. difficile colitis. I assume that his worsening encephalopathy is most likely secondary to his urinary tract infection. We will give IV fluids and IV Rocephin for his UTI and vancomycin and Flagyl for his if. Patient does have right-sided weakness but has had a previous CVA. (2) UTI (urinary tract infection) Qualifiers: Urinary tract infection type: site unspecified Hematuria presence: with hematuria Qualified Code(s): N39.0 - Urinary tract infection, site not specified Is this a current diagnosis for this admission?: YesPlan: We will check a urine culture and start on Rocephin. (3) C. difficile diarrhea Is this a current diagnosis for this admission?: YesPlan: Has been taking Flagyl but continues to have diarrhea. Will give Flagyl and vancomycin p.o. (4) Atrial fibrillation Is this a current diagnosis for this admission?: YesPlan: Currently is in a regular rhythm. He has been on atenolol for rate control and Eliquis for anticoagulation. (5) Hyperlipidemia Is this a current diagnosis for this admission?: YesPlan: Patient has been on Pravachol as an outpatient (6) Hypertension Is this a current diagnosis for this admission?: YesPlan: Has been taking atenolol. (7) COPD (chronic obstructive pulmonary disease) Is this a current diagnosis for this admission?: YesPlan: Wheezing on exam. We will give nebulizers as needed. (8) Gastroesophageal reflux disease Is this a current diagnosis for this admission?: YesPlan: Has been on Prilosec as an outpatient. (9) Dementia Qualifiers: Dementia type: unspecified type Dementia behavioral disturbance: with behavioral disturbance Qualified Code(s): F03.91 - Unspecified dementia with behavioral disturbance; F10.97 - Alcohol use, unspecified with alcohol- induced persisting dementia Is this a current diagnosis for this admission?: YesPlan: Mental status has gotten worse over the last week associated with his urinary tract infection. He is on Aricept, Prozac. - Time Time Spent: 50 to 70 Minutes - Inpatient Certification Medical Necessity: Need Close Monitoring Due to Risk of Patient Decompensation, Need For IV Fluids, Need for IV Antibiotics
[2016-11-18] MEDS ORDERED: METRONIDAZOLE 500 MG TABLET PO ONE (19:00)
[2016-11-18] MEDS: NORMAL SALINE 1000 ML 1,000 ML IV PRN (19:37)
[2016-11-19] MEDS: VANCOMYCIN HCL INJ 500 MG VIAL PO SCH ×5 (00:22→23:00)
[2016-11-19] MEDS: FAMOTIDINE 20 MG TABLET PO SCH ×3 (00:22→23:00)
[2016-11-19] MEDS: APIXABAN 5 MG TABLET PO SCH ×3 (00:22→23:00)
[2016-11-19] MEDS: METRONIDAZOLE 500 MG TABLET PO SCH ×5 (00:22→23:01)
[2016-11-19 04:50] LABS: HEMATOCRIT 40.4 % (37.9-51.0); HEMOGLOBIN 13.4 g/dL (13.5-17.0); HGB HCT DIFFERENCE -0.2; MEAN CORPUSCULAR HEMOGLOBIN 31.3 pg (27.0-33.4); MEAN CORPUSCULAR HGB CONC 33.2 g/dL (32.0-36.0); MEAN CORPUSCULAR VOLUME 95 fl (80-97); RED BLOOD COUNT 4.28 10^6/uL (4.35-5.55); RED CELL DISTRIBUTION WIDTH 13.7 % (11.5-14.0); WHITE BLOOD COUNT 5.8 10^3/uL (4.0-10.5)
[2016-11-19 05:14] LABS: ANION GAP 10 (5-19); BLOOD UREA NITROGEN 6 mg/dL (7-20); CALCIUM 8.5 mg/dL (8.4-10.2); CARBON DIOXIDE 22 mmol/L (22-30); CHLORIDE 109 mmol/L (98-107); GLUCOSE 86 mg/dL (75-110); POTASSIUM 3.6 mmol/L (3.6-5.0); SODIUM 141.1 mmol/L (137-145)
[2016-11-19] MEDS ORDERED: HALOPERIDOL LACTATE INJ 5 MG/1 ML VIAL IM ONE (09:30)
[2016-11-19] MEDS ORDERED: ENOXAPARIN SODIUM INJ 40 MG/0.4 ML DISP.SYRIN SUBCUT SCH (10:00)
--- NOTE | 2016-11-19 11:01 | PDOC PROGRESS REPORT ---
Subjective Progress Note for:: 11/19/16 Subjective:: He was confused earlier this morning and pulled out his IVs. Haldol IM has been given with some decrease in his agitation Physical Exam Vital Signs: Temp Pulse Resp BP Pulse Ox 98.4 F 60 18 163/66 H 98 11/18/16 19:33 11/18/16 19:33 11/18/16 19:33 11/18/16 19:33 11/18/16 19:33 Intake & Output 11/18/16 11/19/16 11/20/16 06:59 06:59 06:59 Intake Total 375 Balance 375 Weight 76.9 kg General appearance: PRESENT: no acute distress Eye exam: PRESENT: conjunctiva pink. ABSENT: scleral icterus Mouth exam: PRESENT: moist, tongue midline Neck exam: ABSENT: JVD Respiratory exam: PRESENT: clear to auscultation preston. ABSENT: rales, rhonchi, wheezes Cardiovascular exam: PRESENT: RRR. ABSENT: diastolic murmur, rubs, systolic murmur GI/Abdominal exam: PRESENT: normal bowel sounds, soft. ABSENT: distended, guarding, mass, organolmegaly, rebound, tenderness Extremities exam: ABSENT: calf tenderness, clubbing, pedal edema Neurological exam: PRESENT: altered, oriented to person. ABSENT: oriented to place, oriented to time, oriented to situation Psychiatric exam: PRESENT: agitated Skin exam: PRESENT: dry, intact, warm. ABSENT: cyanosis, rash Results Laboratory Results: 11/19/16 04:28 11/19/16 04:28 11/19/16 11/19/16 04:28 04:28 WBC 5.8 RBC 4.28 L Hgb 13.4 L Hct 40.4 MCV 95 MCH 31.3 MCHC 33.2 RDW 13.7 Plt Count 177 Sodium 141.1 Potassium 3.6 Chloride 109 H Carbon Dioxide 22 Anion Gap 10 BUN 6 L Creatinine 0.80 Est GFR ( Amer) > 60 Est GFR (Non-Af Amer) > 60 Glucose 86 Calcium 8.5 Impressions: Abdomen/Pelvis CT 11/18/16 10:17 IMPRESSION: NO SIGNIFICANT OR ACUTE FINDING IN THE ABDOMEN OR PELVIS ON CT SCAN WITH IV CONTRAST. Assessment & Plan - Diagnosis (1) Encephalopathy Is this a current diagnosis for this admission?: YesPlan: The patient has dementia baseline but has gotten worse over the last week. He is noted to have a urinary tract infection as well as C. difficile colitis. I assume that his worsening encephalopathy is most likely secondary to his urinary tract infection. We will give IV fluids and IV Rocephin for his UTI and vancomycin and Flagyl for his if. Patient does have right-sided weakness but has had a previous CVA. If his mental status does not improve in the next 24 hours we will obtain a brain MRI. (2) UTI (urinary tract infection) Qualifiers: Urinary tract infection type: site unspecified Hematuria presence: with hematuria Qualified Code(s): N39.0 - Urinary tract infection, site not specified Is this a current diagnosis for this admission?: YesPlan: We will check a urine culture and start on Rocephin. (3) C. difficile diarrhea Is this a current diagnosis for this admission?: YesPlan: Will give Flagyl and vancomycin p.o. (4) Atrial fibrillation Is this a current diagnosis for this admission?: YesPlan: Currently is in a regular rhythm. He has been on atenolol for rate control and Eliquis for anticoagulation. (5) Hyperlipidemia Is this a current diagnosis for this admission?: YesPlan: Patient has been on Pravachol as an outpatient (6) Hypertension Is this a current diagnosis for this admission?: YesPlan: Has been taking atenolol. (7) COPD (chronic obstructive pulmonary disease) Is this a current diagnosis for this admission?: YesPlan: No wheezing on exam. We will give nebulizers as needed. (8) Gastroesophageal reflux disease Is this a current diagnosis for this admission?: YesPlan: Has been on Prilosec as an outpatient. (9) Dementia Qualifiers: Dementia type: unspecified type Dementia behavioral disturbance: with behavioral disturbance Qualified Code(s): F03.91 - Unspecified dementia with behavioral disturbance; F10.97 - Alcohol use, unspecified with alcohol- induced persisting dementia Is this a current diagnosis for this admission?: YesPlan: Mental status has gotten worse over the last week associated with his urinary tract infection. He is on Aricept, Prozac. - Time Time Spent with patient: 25-34 minutes - Inpatient Certification Medical Necessity: Need For IV Fluids, Need for IV Antibiotics
[2016-11-19] MEDS: CEFTRIAXONE 1 GM/D5W RTU 50 ML IV SCH (11:05)
[2016-11-19] MEDS: FLUOXETINE HCL 20 MG CAPSULE PO SCH (13:32)
[2016-11-19] MEDS: DONEPEZIL HCL 5 MG TABLET PO SCH (13:36)
[2016-11-19] MEDS: ATENOLOL 50 MG TABLET PO SCH (13:39)
[2016-11-19] MEDS: NORMAL SALINE 1000 ML 1,000 ML IV PRN (18:55)
[2016-11-20] MEDS: VANCOMYCIN HCL INJ 500 MG VIAL PO SCH ×3 (06:27→23:48)
[2016-11-20] MEDS: METRONIDAZOLE 500 MG TABLET PO SCH ×3 (06:27→23:48)
[2016-11-20 06:38] LABS: ANION GAP 11 (5-19)
[2016-11-20 06:40] LABS: HEMATOCRIT 42.4 % (37.9-51.0); HGB HCT DIFFERENCE -0.4; MEAN CORPUSCULAR HEMOGLOBIN 31.3 pg (27.0-33.4); MEAN CORPUSCULAR HGB CONC 33.1 g/dL (32.0-36.0); MEAN CORPUSCULAR VOLUME 95 fl (80-97); RED BLOOD COUNT 4.47 10^6/uL (4.35-5.55); RED CELL DISTRIBUTION WIDTH 13.5 % (11.5-14.0); WHITE BLOOD COUNT 5.6 10^3/uL (4.0-10.5)
[2016-11-20 07:02] LABS: BLOOD UREA NITROGEN 5 mg/dL (7-20); CALCIUM 8.5 mg/dL (8.4-10.2); CARBON DIOXIDE 25 mmol/L (22-30); CHLORIDE 107 mmol/L (98-107); CREATININE RESULT 0.75 mg/dL (0.52-1.25); GLUCOSE 75 mg/dL (75-110); POTASSIUM 3.7 mmol/L (3.6-5.0); SODIUM 142.7 mmol/L (137-145)
[2016-11-20] MEDS ORDERED: ONDANSETRON 4 MG TAB.RAPDIS PO PRN (08:36)
[2016-11-20] MEDS: FLUOXETINE HCL 20 MG CAPSULE PO SCH (10:05)
[2016-11-20] MEDS: DONEPEZIL HCL 5 MG TABLET PO SCH (10:07)
[2016-11-20] MEDS: APIXABAN 5 MG TABLET PO SCH ×2 (10:08→23:48)
[2016-11-20] MEDS: ATENOLOL 50 MG TABLET PO SCH (10:09)
[2016-11-20] MEDS: CEFTRIAXONE 1 GM/D5W RTU 50 ML IV SCH (10:10)
[2016-11-20] MEDS: FAMOTIDINE 20 MG TABLET PO SCH ×2 (10:11→23:48)
--- NOTE | 2016-11-20 10:35 | PDOC PROGRESS REPORT ---
Subjective Progress Note for:: 11/20/16 Subjective:: He is slightly more alert today. He is oriented to person only Physical Exam Vital Signs: Temp Pulse Resp BP Pulse Ox 98.4 F 60 18 121/78 99 11/20/16 08:00 11/20/16 08:00 11/20/16 08:00 11/20/16 08:00 11/20/16 08:00 Intake & Output 11/19/16 11/20/16 11/21/16 06:59 06:59 06:59 Intake Total 375 4360 Output Total 1 Balance 375 4359 Weight 76.9 kg 80.9 kg General appearance: PRESENT: no acute distress Eye exam: PRESENT: conjunctiva pink. ABSENT: scleral icterus Mouth exam: PRESENT: moist, tongue midline Neck exam: ABSENT: JVD Respiratory exam: PRESENT: clear to auscultation preston. ABSENT: rales, rhonchi, wheezes Cardiovascular exam: PRESENT: RRR. ABSENT: diastolic murmur, rubs, systolic murmur GI/Abdominal exam: PRESENT: normal bowel sounds, soft. ABSENT: distended, guarding, mass, organolmegaly, rebound, tenderness Extremities exam: ABSENT: calf tenderness, clubbing, pedal edema Neurological exam: PRESENT: awake, oriented to person. ABSENT: oriented to place, oriented to time, oriented to situation Psychiatric exam: PRESENT: flat affect Skin exam: PRESENT: dry, intact, warm. ABSENT: cyanosis, rash Results Laboratory Results: 11/20/16 06:09 11/20/16 06:09 11/20/16 11/20/16 06:09 06:09 WBC 5.6 RBC 4.47 Hgb 14.0 Hct 42.4 MCV 95 MCH 31.3 MCHC 33.1 RDW 13.5 Plt Count 173 Sodium 142.7 Potassium 3.7 Chloride 107 Carbon Dioxide 25 Anion Gap 11 BUN 5 L Creatinine 0.75 Est GFR ( Amer) > 60 Est GFR (Non-Af Amer) > 60 Glucose 75 Calcium 8.5 Impressions: Abdomen/Pelvis CT 11/18/16 10:17 IMPRESSION: NO SIGNIFICANT OR ACUTE FINDING IN THE ABDOMEN OR PELVIS ON CT SCAN WITH IV CONTRAST. Assessment & Plan - Diagnosis (1) Encephalopathy Is this a current diagnosis for this admission?: YesPlan: The patient has dementia baseline but has gotten worse over the last week. He is noted to have a urinary tract infection as well as C. difficile colitis. I assume that his worsening encephalopathy is most likely secondary to his urinary tract infection. We will continue IV fluids and IV Rocephin for his UTI and vancomycin and Flagyl for his C. difficile colitis. Patient does have right-sided weakness but has had a previous CVA. If his mental status does not improve in the next 24 hours we will obtain a brain MRI. (2) UTI (urinary tract infection) Qualifiers: Urinary tract infection type: site unspecified Hematuria presence: with hematuria Qualified Code(s): N39.0 - Urinary tract infection, site not specified Is this a current diagnosis for this admission?: YesPlan: Continue Rocephin (3) C. difficile diarrhea Is this a current diagnosis for this admission?: YesPlan: Will give Flagyl and vancomycin p.o. (4) Atrial fibrillation Is this a current diagnosis for this admission?: YesPlan: Currently is in a regular rhythm. He has been on atenolol for rate control and Eliquis for anticoagulation. (5) Hyperlipidemia Is this a current diagnosis for this admission?: YesPlan: Patient has been on Pravachol as an outpatient (6) Hypertension Is this a current diagnosis for this admission?: YesPlan: Has been taking atenolol. (7) COPD (chronic obstructive pulmonary disease) Is this a current diagnosis for this admission?: YesPlan: No wheezing on exam. We will give nebulizers as needed. (8) Gastroesophageal reflux disease Is this a current diagnosis for this admission?: YesPlan: Has been on Prilosec as an outpatient. (9) Dementia Qualifiers: Dementia type: unspecified type Dementia behavioral disturbance: with behavioral disturbance Qualified Code(s): F03.91 - Unspecified dementia with behavioral disturbance; F10.97 - Alcohol use, unspecified with alcohol- induced persisting dementia Is this a current diagnosis for this admission?: YesPlan: Mental status has gotten worse over the last week associated with his urinary tract infection. He is on Aricept, Prozac. - Time Time Spent with patient: 25-34 minutes - Inpatient Certification Medical Necessity: Need Close Monitoring Due to Risk of Patient Decompensation, Need For IV Fluids, Need for IV Antibiotics
--- NOTE | 2016-11-20 11:17 | Physician Advisory Note ---
Physician Advisor ProgressNote .: Pursuant to the plan for [facility], I have reviewed the medical record for this patient. Physician Advisor Statement: Please consider documentin. "Rt hemiparesis, chronic, from CVA" 2. Please avoid "copy/paste" in notes unless editing them each time. Thanks! CK
[2016-11-20] MEDS ORDERED: PHARMACY COMMUNICATION ORDER MC NR (13:30)
[2016-11-20] MEDS ORDERED: HALOPERIDOL LACTATE INJ 5 MG/1 ML VIAL IV PRN (13:32)
--- NOTE | 2016-11-20 16:44 | RADIOLOGY REPORT (SQ) ---
EXAM DESCRIPTION: KUB/ABDOMEN (SINGLE VIEW) COMPLETED DATE/TIME: 11/20/2016 4:36 pm REASON FOR STUDY: Check Placement of NG Tube COMPARISON: None. TECHNIQUE: AP view of the lower thorax and upper abdomen LIMITATIONS: None. FINDINGS: NG tube is identified with its tip at the level of the mid epigastrium presumably in the s tomach IMPRESSION: NG tube with its tip in the mid epigastrium presumably in the stomach. TECHNICAL DOCUMENTATION: JOB ID: [id number] All Rights Reserved
[2016-11-21] MEDS: ONDANSETRON HCL INJ/PF 4 MG/2 ML SDV IV PRN (02:25)
[2016-11-21] MEDS: METRONIDAZOLE 500 MG TABLET PO SCH ×4 (06:24→23:13)
[2016-11-21] MEDS: VANCOMYCIN HCL INJ 500 MG VIAL PO SCH ×4 (06:25→23:13)
[2016-11-21 06:57] LABS: ABSOLUTE BASOPHILS # (AUTO) 0.1 10^3/uL (0.0-0.2); ABSOLUTE EOSINOPHILS # (AUTO) 0.1 10^3/uL (0.0-0.6); ABSOLUTE LYMPHOCYTES (AUTO) 0.7 10^3/uL (0.5-4.7); ABSOLUTE MONOCYTES (AUTO) 0.6 10^3/uL (0.1-1.4); ABSOLUTE NEUT (AUTO) 4.2 10^3/uL (1.7-8.2); BASOPHILS % (AUTO) 1.5 % (0-2); EOSINOPHILS % (AUTO) 1.4 % (0-6); HEMATOCRIT 40.6 % (37.9-51.0); HEMOGLOBIN 13.5 g/dL (13.5-17.0); HGB HCT DIFFERENCE -0.1; LYMPHOCYTES % (AUTO) 12.5 % (13-45); MEAN CORPUSCULAR HGB CONC 33.2 g/dL (32.0-36.0); MEAN CORPUSCULAR VOLUME 96 fl (80-97); MONOCYTES % (AUTO) 10.4 % (3-13); RED BLOOD COUNT 4.22 10^6/uL (4.35-5.55); RED CELL DISTRIBUTION WIDTH 13.5 % (11.5-14.0); SEGMENTED NEUTROPHILS % (AUTO) 74.2 % (42-78); WHITE BLOOD COUNT 5.7 10^3/uL (4.0-10.5)
[2016-11-21 06:58] LABS: ANION GAP 14 (5-19); BLOOD UREA NITROGEN 5 mg/dL (7-20); CALCIUM 8.2 mg/dL (8.4-10.2); CARBON DIOXIDE 20 mmol/L (22-30); CHLORIDE 107 mmol/L (98-107); CREATININE RESULT 0.76 mg/dL (0.52-1.25); GLUCOSE 72 mg/dL (75-110); SODIUM 140.6 mmol/L (137-145)
[2016-11-21] MEDS: CEFTRIAXONE 1 GM/D5W RTU 50 ML IV SCH (09:53)
[2016-11-21] MEDS: FAMOTIDINE 20 MG TABLET PO SCH ×2 (09:54→21:51)
[2016-11-21] MEDS: DONEPEZIL HCL 5 MG TABLET PO SCH (09:54)
--- NOTE | 2016-11-21 09:56 | PDOC PROGRESS REPORT ---
Subjective Progress Note for:: 11/21/16 Subjective:: Patient was more agitated yesterday evening and pulled his NG tube out. Physical Exam Vital Signs: Temp Pulse Resp BP Pulse Ox 98.0 F 53 L 16 148/63 H 100 11/21/16 07:37 11/21/16 07:37 11/21/16 07:37 11/21/16 07:37 11/21/16 07:37 Intake & Output 11/20/16 11/21/16 11/22/16 06:59 06:59 06:59 Intake Total 4360 2425 Output Total 1 Balance 4359 2425 Weight 80.9 kg 80.5 kg General appearance: PRESENT: no acute distress Eye exam: PRESENT: conjunctiva pink. ABSENT: scleral icterus Ear exam: PRESENT: normal external ear exam Mouth exam: PRESENT: moist, tongue midline Neck exam: ABSENT: JVD Respiratory exam: PRESENT: clear to auscultation preston. ABSENT: rales, rhonchi, wheezes Cardiovascular exam: PRESENT: RRR. ABSENT: diastolic murmur, rubs, systolic murmur GI/Abdominal exam: PRESENT: normal bowel sounds, soft, tenderness - Lower tenderness but no guarding or rebound. ABSENT: distended, guarding, mass, organolmegaly, rebound Extremities exam: ABSENT: calf tenderness, clubbing, pedal edema Neurological exam: PRESENT: awake, oriented to person. ABSENT: oriented to place, oriented to time, oriented to situation Psychiatric exam: PRESENT: agitated Skin exam: PRESENT: dry, intact, warm. ABSENT: cyanosis, rash Results Laboratory Results: 11/21/16 06:17 11/21/16 06:17 11/21/16 11/21/16 06:17 06:17 WBC 5.7 RBC 4.22 L Hgb 13.5 Hct 40.6 MCV 96 MCH 32.0 MCHC 33.2 RDW 13.5 Plt Count 153 Seg Neutrophils % 74.2 Lymphocytes % 12.5 L Monocytes % 10.4 Eosinophils % 1.4 Basophils % 1.5 Absolute Neutrophils 4.2 Absolute Lymphocytes 0.7 Absolute Monocytes 0.6 Absolute Eosinophils 0.1 Absolute Basophils 0.1 Sodium 140.6 Potassium 4.0 Chloride 107 Carbon Dioxide 20 L Anion Gap 14 BUN 5 L Creatinine 0.76 Est GFR ( Amer) > 60 Est GFR (Non-Af Amer) > 60 Glucose 72 L Calcium 8.2 L Impressions: Abdomen/Pelvis CT 11/18/16 10:17 IMPRESSION: NO SIGNIFICANT OR ACUTE FINDING IN THE ABDOMEN OR PELVIS ON CT SCAN WITH IV CONTRAST. KUB X-Ray 11/20/16 13:24 IMPRESSION: NG tube with its tip in the mid epigastrium presumably in the stomach. Assessment & Plan - Diagnosis (1) Encephalopathy Is this a current diagnosis for this admission?: YesPlan: The patient has dementia baseline but has gotten worse over the last week. He is noted to have a urinary tract infection as well as C. difficile colitis. I assume that his worsening encephalopathy is most likely secondary to his urinary tract infection. We will continue IV fluids and IV Rocephin for his UTI and vancomycin and Flagyl po for his C. difficile colitis. Patient does have right-sided weakness but has had a previous CVA. I Considered getting an MRI for his mental status however the patient because of his agitation will not lay still long enough for us to do an MRI (2) UTI (urinary tract infection) Qualifiers: Urinary tract infection type: site unspecified Hematuria presence: with hematuria Qualified Code(s): N39.0 - Urinary tract infection, site not specified Is this a current diagnosis for this admission?: YesPlan: Continue Rocephin. Cultures are negative so far. (3) C. difficile diarrhea Is this a current diagnosis for this admission?: YesPlan: Will give Flagyl and vancomycin p.o. the patient is having difficulty taking p.o. and we attempted an NG tube yesterday evening. Will ask nursing staff to try again today to get an NG tube down. Patient needs restraints to keep from pulling his NG output (4) Atrial fibrillation Is this a current diagnosis for this admission?: YesPlan: Currently is in a regular rhythm. He has been on atenolol for rate control and Eliquis for anticoagulation. (5) Hyperlipidemia Is this a current diagnosis for this admission?: YesPlan: Patient has been on Pravachol as an outpatient (6) Hypertension Is this a current diagnosis for this admission?: YesPlan: Has been taking atenolol. (7) COPD (chronic obstructive pulmonary disease) Is this a current diagnosis for this admission?: YesPlan: No wheezing on exam. We will give nebulizers as needed. (8) Gastroesophageal reflux disease Is this a current diagnosis for this admission?: YesPlan: Has been on Prilosec as an outpatient. (9) Dementia Qualifiers: Dementia type: unspecified type Dementia behavioral disturbance: with behavioral disturbance Qualified Code(s): F03.91 - Unspecified dementia with behavioral disturbance; F10.97 - Alcohol use, unspecified with alcohol- induced persisting dementia Is this a current diagnosis for this admission?: YesPlan: Mental status has gotten worse over the last week associated with his urinary tract infection. He is on Aricept, Prozac. - Time Time Spent with patient: 25-34 minutes - Inpatient Certification Medical Necessity: Need For IV Fluids, Need for IV Antibiotics
[2016-11-21] MEDS: APIXABAN 5 MG TABLET PO SCH ×2 (09:57→21:51)
[2016-11-21] MEDS: FLUOXETINE HCL 20 MG CAPSULE PO SCH (09:58)
[2016-11-21] MEDS: ATENOLOL 50 MG TABLET PO SCH (09:59)
[2016-11-21] MEDS: NORMAL SALINE 1000 ML 1,000 ML IV PRN (11:59)
[2016-11-22 06:33] LABS: ABSOLUTE EOSINOPHILS # (AUTO) 0.2 10^3/uL (0.0-0.6); ABSOLUTE LYMPHOCYTES (AUTO) 0.9 10^3/uL (0.5-4.7); ABSOLUTE MONOCYTES (AUTO) 0.7 10^3/uL (0.1-1.4); ABSOLUTE NEUT (AUTO) 4.6 10^3/uL (1.7-8.2); BASOPHILS % (AUTO) 0.6 % (0-2); HEMATOCRIT 43.4 % (37.9-51.0); HEMOGLOBIN 14.6 g/dL (13.5-17.0); HGB HCT DIFFERENCE 0.4; LYMPHOCYTES % (AUTO) 14.2 % (13-45); MEAN CORPUSCULAR HGB CONC 33.7 g/dL (32.0-36.0); MEAN CORPUSCULAR VOLUME 95 fl (80-97); MONOCYTES % (AUTO) 11.2 % (3-13); RED BLOOD COUNT 4.57 10^6/uL (4.35-5.55); RED CELL DISTRIBUTION WIDTH 13.7 % (11.5-14.0); WHITE BLOOD COUNT 6.4 10^3/uL (4.0-10.5)
[2016-11-22] MEDS: METRONIDAZOLE 500 MG TABLET PO SCH ×4 (06:47→22:45)
[2016-11-22] MEDS: VANCOMYCIN HCL INJ 500 MG VIAL PO SCH ×4 (06:47→22:50)
[2016-11-22 06:50] LABS: ANION GAP 14 (5-19); BLOOD UREA NITROGEN 2 mg/dL (7-20); CALCIUM 8.3 mg/dL (8.4-10.2); CARBON DIOXIDE 20 mmol/L (22-30); CHLORIDE 105 mmol/L (98-107); CREATININE RESULT 0.73 mg/dL (0.52-1.25); GLUCOSE 70 mg/dL (75-110); POTASSIUM 3.7 mmol/L (3.6-5.0); SODIUM 139.2 mmol/L (137-145)
--- NOTE | 2016-11-22 09:48 | RADIOLOGY REPORT (SQ) ---
EXAM DESCRIPTION: CT HEAD WITHOUT COMPLETED DATE/TIME: 11/22/2016 9:35 am REASON FOR STUDY: encephalopathy COMPARISON: None. TECHNIQUE: Axial images acquired through the brain without intravenous contrast. Images reviewed wi th bone, brain and subdural windows. Images stored on PACS. All CT scanners at this facility use dose modulation, iterative reconstruction, and/or weight based d osing when appropriate to reduce radiation dose to as low as reasonably achievable (ALARA). [facility]: Dose Right [facility]: CareDose [facility]: Dose Right [facility]: Teradose 4D [facility]: [employer] [facility] RADIATION DOSE: Up-to-date CT equipment and radiation dose reduction techniques were employed. CTDIv ol: 64.6 mGy. DLP: 1163 mGy-cm.mGy. LIMITATIONS: None. FINDINGS: VENTRICLES: Prominent. CEREBRUM: No masses. No hemorrhage. No midline shift. Areas of low density in the white matter mos t likely due to chronic micro-vascular ischemic change. No evidence for acute infarction. CEREBELLUM: No masses. No hemorrhage. No alteration of density. No evidence for acute infarction. EXTRAAXIAL SPACES: Age-related involutional change. No fluid collections. No masses. ORBITS AND GLOBE: No intra- or extraconal masses. Normal contour of globe without masses. CALVARIUM: No fracture. PARANASAL SINUSES: No fluid or mucosal thickening. SOFT TISSUES: No mass or hematoma. OTHER: No other significant finding. IMPRESSION: CHRONIC CHANGES OF ATROPHY AND MICROVASCULAR ISCHEMIA. NO ACUTE PROCESS. TECHNICAL DOCUMENTATION: JOB ID: [id number] Quality ID # [id number]: Final reports with documentation of one or more dose reduction techniques (e.g., Au tomated exposure control, adjustment of the mA and/or kV according to patient size, use of iterative reconstruction technique) 2010 [employer]- All Rights Reserved
--- NOTE | 2016-11-22 09:51 | PDOC PROGRESS REPORT ---
Subjective Progress Note for:: 11/22/16 Subjective:: Patient will answer yes/no questions but is confused Physical Exam Vital Signs: Temp Pulse Resp BP Pulse Ox 98.2 F 60 18 180/65 H 95 11/22/16 07:54 11/22/16 07:54 11/22/16 07:54 11/22/16 07:54 11/22/16 07:54 Intake & Output 11/21/16 11/22/16 11/23/16 06:59 06:59 06:59 Intake Total 2425 3398 Balance 2425 3398 Weight 80.5 kg 85 kg General appearance: PRESENT: no acute distress Eye exam: PRESENT: conjunctiva pink. ABSENT: scleral icterus Ear exam: PRESENT: normal external ear exam Mouth exam: PRESENT: moist, tongue midline Neck exam: ABSENT: carotid bruit, JVD, lymphadenopathy, thyromegaly Respiratory exam: PRESENT: clear to auscultation preston. ABSENT: rales, rhonchi, wheezes Cardiovascular exam: PRESENT: RRR. ABSENT: diastolic murmur, rubs, systolic murmur GI/Abdominal exam: PRESENT: normal bowel sounds, soft. ABSENT: distended, guarding, mass, organolmegaly, rebound, tenderness Extremities exam: ABSENT: calf tenderness, clubbing, pedal edema Neurological exam: PRESENT: awake, oriented to person. ABSENT: oriented to place, oriented to time, oriented to situation Psychiatric exam: PRESENT: flat affect Skin exam: PRESENT: dry, intact, warm. ABSENT: cyanosis, rash Results Laboratory Results: 11/22/16 05:58 11/22/16 05:58 11/22/16 11/22/16 05:58 05:58 WBC 6.4 RBC 4.57 Hgb 14.6 Hct 43.4 MCV 95 MCH 32.0 MCHC 33.7 RDW 13.7 Plt Count 185 Seg Neutrophils % 71.0 Lymphocytes % 14.2 Monocytes % 11.2 Eosinophils % 3.0 Basophils % 0.6 Absolute Neutrophils 4.6 Absolute Lymphocytes 0.9 Absolute Monocytes 0.7 Absolute Eosinophils 0.2 Absolute Basophils 0.0 Sodium 139.2 Potassium 3.7 Chloride 105 Carbon Dioxide 20 L Anion Gap 14 BUN 2 L Creatinine 0.73 Est GFR ( Amer) > 60 Est GFR (Non-Af Amer) > 60 Glucose 70 L Calcium 8.3 L Impressions: Abdomen/Pelvis CT 11/18/16 10:17 IMPRESSION: NO SIGNIFICANT OR ACUTE FINDING IN THE ABDOMEN OR PELVIS ON CT SCAN WITH IV CONTRAST. KUB X-Ray 11/20/16 13:24 IMPRESSION: NG tube with its tip in the mid epigastrium presumably in the stomach. Assessment & Plan - Diagnosis (1) Encephalopathy Is this a current diagnosis for this admission?: YesPlan: The patient has dementia baseline but has gotten worse over the last week. He is noted to have a urinary tract infection as well as C. difficile colitis. I assume that his worsening encephalopathy is most likely secondary to his urinary tract infection. We will continue IV fluids and IV Rocephin for his UTI and vancomycin and Flagyl po for his C. difficile colitis. Patient does have right-sided weakness but has had a previous CVA. Patient is still confused and we will get a head CT to rule out any acute event. He cannot lay still enough for an MRI (2) UTI (urinary tract infection) Qualifiers: Urinary tract infection type: site unspecified Hematuria presence: with hematuria Qualified Code(s): N39.0 - Urinary tract infection, site not specified Is this a current diagnosis for this admission?: YesPlan: Continue Rocephin. Cultures are negative so far. (3) C. difficile diarrhea Is this a current diagnosis for this admission?: YesPlan: Will give Flagyl and vancomycin p.o. the patient is having difficulty taking p.o. and if he is not able to take it we will replace the NG tube. (4) Atrial fibrillation Is this a current diagnosis for this admission?: YesPlan: Currently is in a regular rhythm. He has been on atenolol for rate control and Eliquis for anticoagulation. (5) Hyperlipidemia Is this a current diagnosis for this admission?: YesPlan: Patient has been on Pravachol as an outpatient (6) Hypertension Is this a current diagnosis for this admission?: YesPlan: Has been taking atenolol. (7) COPD (chronic obstructive pulmonary disease) Is this a current diagnosis for this admission?: YesPlan: No wheezing on exam. We will give nebulizers as needed. (8) Gastroesophageal reflux disease Is this a current diagnosis for this admission?: YesPlan: Has been on Prilosec as an outpatient. (9) Dementia Qualifiers: Dementia type: unspecified type Dementia behavioral disturbance: with behavioral disturbance Qualified Code(s): F03.91 - Unspecified dementia with behavioral disturbance; F10.97 - Alcohol use, unspecified with alcohol- induced persisting dementia Is this a current diagnosis for this admission?: YesPlan: Mental status has gotten worse over the last week associated with his urinary tract infection. He is on Aricept, Prozac. - Time Time Spent with patient: 25-34 minutes - Inpatient Certification Medical Necessity: Need Close Monitoring Due to Risk of Patient Decompensation, Need for IV Antibiotics
[2016-11-22] MEDS: CEFTRIAXONE 1 GM/D5W RTU 50 ML IV SCH (10:10)
[2016-11-22] MEDS: APIXABAN 5 MG TABLET PO SCH ×2 (10:11→22:45)
[2016-11-22] MEDS: FLUOXETINE HCL 20 MG CAPSULE PO SCH (10:11)
[2016-11-22] MEDS: DONEPEZIL HCL 5 MG TABLET PO SCH (10:12)
[2016-11-22] MEDS: FAMOTIDINE 20 MG TABLET PO SCH ×2 (10:12→22:45)
[2016-11-22] MEDS: ATENOLOL 50 MG TABLET PO SCH (10:13)
[2016-11-22] MEDS: NORMAL SALINE 1000 ML 1,000 ML IV PRN (16:47)
[2016-11-22] MEDS ORDERED: CLOTRIMAZOLE/BETAMETHASONE DIP CREAM 15 GM ONE (18:19)
[2016-11-22] MEDS: CLOTRIMAZOLE/BETAMETHASONE DIP CREAM 15 GM TOP SCH (18:46)
[2016-11-23] MEDS: METRONIDAZOLE 500 MG TABLET PO SCH ×3 (05:03→17:35)
[2016-11-23] MEDS: VANCOMYCIN HCL INJ 500 MG VIAL PO SCH ×3 (05:03→17:43)
[2016-11-23 05:40] LABS: ANION GAP 14 (5-19); BLOOD UREA NITROGEN 4 mg/dL (7-20); CALCIUM 8.9 mg/dL (8.4-10.2); CARBON DIOXIDE 19 mmol/L (22-30); CHLORIDE 107 mmol/L (98-107); GLUCOSE 116 mg/dL (75-110); POTASSIUM 3.2 mmol/L (3.6-5.0); SODIUM 140.4 mmol/L (137-145)
[2016-11-23 06:31] LABS: ABSOLUTE BASOPHILS # (AUTO) 0.1 10^3/uL (0.0-0.2); ABSOLUTE MONOCYTES (AUTO) 0.8 10^3/uL (0.1-1.4); ABSOLUTE NEUT (AUTO) 7.3 10^3/uL (1.7-8.2); BASOPHILS % (AUTO) 0.6 % (0-2); EOSINOPHILS % (AUTO) 0.4 % (0-6); HEMATOCRIT 51.1 % (37.9-51.0); HGB HCT DIFFERENCE 1.1; LYMPHOCYTES % (AUTO) 10.9 % (13-45); MEAN CORPUSCULAR HEMOGLOBIN 32.2 pg (27.0-33.4); MEAN CORPUSCULAR VOLUME 95 fl (80-97); MONOCYTES % (AUTO) 9.2 % (3-13); RED CELL DISTRIBUTION WIDTH 13.7 % (11.5-14.0); SEGMENTED NEUTROPHILS % (AUTO) 78.9 % (42-78); WHITE BLOOD COUNT 9.2 10^3/uL (4.0-10.5)
[2016-11-23 06:40] LABS: HEMOGLOBIN 17.4 g/dL (13.5-17.0)
[2016-11-23] MEDS: APIXABAN 5 MG TABLET PO SCH ×2 (09:41→22:25)
[2016-11-23] MEDS: DONEPEZIL HCL 5 MG TABLET PO SCH (09:41)
[2016-11-23] MEDS: FLUOXETINE HCL 20 MG CAPSULE PO SCH (09:41)
[2016-11-23] MEDS: ATENOLOL 50 MG TABLET PO SCH (09:41)
[2016-11-23] MEDS: FAMOTIDINE 20 MG TABLET PO SCH ×2 (09:41→22:25)
[2016-11-23] MEDS: CEFTRIAXONE 1 GM/D5W RTU 50 ML IV SCH (09:41)
[2016-11-23] MEDS: CLOTRIMAZOLE/BETAMETHASONE DIP CREAM 15 GM TOP SCH ×2 (09:41→17:24)
--- NOTE | 2016-11-23 09:43 | PDOC PROGRESS REPORT ---
Subjective Progress Note for:: 11/23/16 Subjective:: Patient will answer yes/no questions but is confused Physical Exam Vital Signs: Temp Pulse Resp BP Pulse Ox 98.0 F 61 16 185/91 H 100 11/23/16 07:57 11/23/16 07:57 11/23/16 07:57 11/23/16 07:57 11/23/16 07:57 Intake & Output 11/22/16 11/23/16 11/24/16 06:59 06:59 06:59 Intake Total 3398 3048 Balance 3398 3048 Weight 85 kg 80 kg General appearance: PRESENT: no acute distress Eye exam: PRESENT: conjunctiva pink. ABSENT: scleral icterus Mouth exam: PRESENT: moist, tongue midline Neck exam: ABSENT: JVD Respiratory exam: PRESENT: clear to auscultation pre[place]. ABSENT: rales, rhonchi, wheezes Cardiovascular exam: PRESENT: RRR. ABSENT: diastolic murmur, rubs, systolic murmur GI/Abdominal exam: PRESENT: normal bowel sounds, soft. ABSENT: distended, guarding, mass, organolmegaly, rebound, tenderness Extremities exam: ABSENT: calf tenderness, clubbing, pedal edema Neurological exam: PRESENT: awake, oriented to person. ABSENT: oriented to place, oriented to time, oriented to situation Psychiatric exam: PRESENT: flat affect Skin exam: PRESENT: dry, intact, warm. ABSENT: cyanosis, rash Results Laboratory Results: 11/23/16 06:18 11/23/16 05:18 11/23/16 11/23/16 11/23/16 05:18 05:18 06:18 WBC Cancelled 9.2 RBC Cancelled 5.40 Hgb Cancelled 17.4 H D Hct Cancelled 51.1 H MCV Cancelled 95 MCH Cancelled 32.2 MCHC Cancelled 34.0 RDW Cancelled 13.7 Plt Count Cancelled 246 Seg Neutrophils % Cancelled 78.9 H Lymphocytes % Cancelled 10.9 L Monocytes % Cancelled 9.2 Eosinophils % Cancelled 0.4 Basophils % Cancelled 0.6 Absolute Neutrophils Cancelled 7.3 Absolute Lymphocytes Cancelled 1.0 Absolute Monocytes Cancelled 0.8 Absolute Eosinophils Cancelled 0.0 Absolute Basophils Cancelled 0.1 Sodium 140.4 Potassium 3.2 L Chloride 107 Carbon Dioxide 19 L Anion Gap 14 BUN 4 L Creatinine 0.70 Est GFR ( Amer) > 60 Est GFR (Non-Af Amer) > 60 Glucose 116 H Calcium 8.9 Impressions: Abdomen/Pelvis CT 11/18/16 10:17 IMPRESSION: NO SIGNIFICANT OR ACUTE FINDING IN THE ABDOMEN OR PELVIS ON CT SCAN WITH IV CONTRAST. KUB X-Ray 11/20/16 13:24 IMPRESSION: NG tube with its tip in the mid epigastrium presumably in the stomach. Head CT 11/22/16 00:00 IMPRESSION: CHRONIC CHANGES OF ATROPHY AND MICROVASCULAR ISCHEMIA. NO ACUTE PROCESS. Assessment & Plan - Diagnosis (1) Encephalopathy Is this a current diagnosis for this admission?: YesPlan: The patient has dementia baseline but has gotten worse over the last week. He is noted to have a urinary tract infection as well as C. difficile colitis. I assume that his worsening encephalopathy is most likely secondary to his urinary tract infection. We will continue IV fluids and IV Rocephin for his UTI and vancomycin and Flagyl po for his C. difficile colitis. Patient does have right-sided weakness but has had a previous CVA. CT was negative for any acute event. He cannot lay still enough for an MRI (2) UTI (urinary tract infection) Qualifiers: Urinary tract infection type: site unspecified Hematuria presence: with hematuria Qualified Code(s): N39.0 - Urinary tract infection, site not specified Is this a current diagnosis for this admission?: YesPlan: Continue Rocephin. Cultures are negative so far. (3) C. difficile diarrhea Is this a current diagnosis for this admission?: YesPlan: Continue with Flagyl and vancomycin p.o. . (4) Atrial fibrillation Is this a current diagnosis for this admission?: YesPlan: Currently is in a regular rhythm. He has been on atenolol for rate control and Eliquis for anticoagulation. (5) Hyperlipidemia Is this a current diagnosis for this admission?: YesPlan: Patient has been on Pravachol as an outpatient (6) Hypertension Is this a current diagnosis for this admission?: YesPlan: Has been taking atenolol. (7) COPD (chronic obstructive pulmonary disease) Is this a current diagnosis for this admission?: YesPlan: No wheezing on exam. We will give nebulizers as needed. (8) Gastroesophageal reflux disease Is this a current diagnosis for this admission?: YesPlan: Has been on Prilosec as an outpatient. (9) Dementia Qualifiers: Dementia type: unspecified type Dementia behavioral disturbance: with behavioral disturbance Qualified Code(s): F03.91 - Unspecified dementia with behavioral disturbance; F10.97 - Alcohol use, unspecified with alcohol- induced persisting dementia Is this a current diagnosis for this admission?: YesPlan: Mental status has gotten worse over the last week associated with his urinary tract infection. He is on Aricept, Prozac. - Time Time Spent with patient: 25-34 minutes - Inpatient Certification Medical Necessity: Need Close Monitoring Due to Risk of Patient Decompensation, Need for IV Antibiotics
[2016-11-23] MEDS: HYDRALAZINE HCL INJ/PF 20 MG/1 ML SDV IV PRN (20:49)
[2016-11-23] MEDS: ONDANSETRON HCL INJ/PF 4 MG/2 ML SDV IV PRN (22:35)
[2016-11-24] MEDS: VANCOMYCIN HCL INJ 500 MG VIAL PO SCH ×2 (00:25→05:12)
[2016-11-24] MEDS: METRONIDAZOLE 500 MG TABLET PO SCH ×2 (00:40→05:12)
[2016-11-24 05:32] LABS: ABSOLUTE BASOPHILS # (AUTO) 0.1 10^3/uL (0.0-0.2); ABSOLUTE LYMPHOCYTES (AUTO) 0.7 10^3/uL (0.5-4.7); ABSOLUTE MONOCYTES (AUTO) 0.8 10^3/uL (0.1-1.4); ABSOLUTE NEUT (AUTO) 7.9 10^3/uL (1.7-8.2); BASOPHILS % (AUTO) 0.6 % (0-2); EOSINOPHILS % (AUTO) 0.1 % (0-6); HEMATOCRIT 48.2 % (37.9-51.0); HEMOGLOBIN 16.2 g/dL (13.5-17.0); HGB HCT DIFFERENCE 0.4; LYMPHOCYTES % (AUTO) 7.2 % (13-45); MEAN CORPUSCULAR HEMOGLOBIN 31.7 pg (27.0-33.4); MEAN CORPUSCULAR HGB CONC 33.6 g/dL (32.0-36.0); MEAN CORPUSCULAR VOLUME 94 fl (80-97); RED BLOOD COUNT 5.13 10^6/uL (4.35-5.55); SEGMENTED NEUTROPHILS % (AUTO) 84.1 % (42-78); WHITE BLOOD COUNT 9.5 10^3/uL (4.0-10.5)
[2016-11-24 05:54] LABS: ANION GAP 15 (5-19); BLOOD UREA NITROGEN 7 mg/dL (7-20); CALCIUM 9.2 mg/dL (8.4-10.2); CARBON DIOXIDE 18 mmol/L (22-30); CHLORIDE 108 mmol/L (98-107); CREATININE RESULT 0.69 mg/dL (0.52-1.25); GLUCOSE 124 mg/dL (75-110); POTASSIUM 3.6 mmol/L (3.6-5.0); SODIUM 141.2 mmol/L (137-145)
[2016-11-24] MEDS ORDERED: HALOPERIDOL LACTATE INJ 5 MG/1 ML VIAL IV PRN (07:50)
[2016-11-24] MEDS ORDERED: ACETAMINOPHEN SOLN 325 MG/10.15 ML UDCUP NG PRN (07:54)
[2016-11-24] MEDS ORDERED: ONDANSETRON 4 MG TAB.RAPDIS NG PRN (07:58)
[2016-11-24] MEDS ORDERED: PHARMACY COMMUNICATION ORDER MC NR (08:00)
[2016-11-24] MEDS ORDERED: ATENOLOL 50 MG TABLET NG SCH (10:00)
--- NOTE | 2016-11-24 10:41 | RADIOLOGY REPORT (SQ) ---
EXAM DESCRIPTION: KUB/ABDOMEN (SINGLE VIEW) COMPLETED DATE/TIME: 11/24/2016 10:28 am REASON FOR STUDY: Check Placement of NG Tube COMPARISON: 11/20/2016. NUMBER OF VIEWS: One view. TECHNIQUE: Supine radiographic image of the abdomen acquired. LIMITATIONS: None. FINDINGS: BOWEL GAS PATTERN: Normal bowel gas pattern. No dilated loops. CALCIFICATIONS: No suspicious calcifications. SOFT TISSUES: No gross mass or suggestion of organomegaly. HARDWARE: Tip of the nasogastric tube in the stomach. BONES: No acute fracture. Degenerative changes in the spine. No worrisome bone lesions. OTHER: No other significant finding. IMPRESSION: TIP OF THE NASOGASTRIC TUBE IN THE STOMACH. NO RADIOGRAPHIC EVIDENCE FOR ACUTE ABDOMINA L DISEASE. TECHNICAL DOCUMENTATION: JOB ID: [id number] [employer]- All Rights Reserved
[2016-11-24] MEDS: CLOTRIMAZOLE/BETAMETHASONE DIP CREAM 15 GM TOP SCH ×2 (11:48→18:14)
[2016-11-24] MEDS: DONEPEZIL HCL 5 MG TABLET NG SCH (11:55)
[2016-11-24] MEDS: FAMOTIDINE 20 MG TABLET NG SCH ×2 (11:55→21:41)
[2016-11-24] MEDS: METRONIDAZOLE 500 MG TABLET NG SCH ×3 (11:55→23:51)
[2016-11-24] MEDS: APIXABAN 5 MG TABLET NG SCH ×2 (11:55→21:41)
[2016-11-24] MEDS: VANCOMYCIN HCL INJ 500 MG VIAL NG SCH ×3 (11:55→23:51)
[2016-11-24] MEDS: CEFTRIAXONE 1 GM/D5W RTU 50 ML IV SCH (11:55)
--- NOTE | 2016-11-24 11:55 | PDOC PROGRESS REPORT ---
Subjective Progress Note for:: 11/24/16 Subjective:: Patient will answer yes/no questions but is confused. He refused to take his medications by mouth yesterday evening Physical Exam Vital Signs: Temp Pulse Resp BP Pulse Ox 97.4 F 83 16 150/95 H 98 11/24/16 08:32 11/24/16 08:32 11/24/16 08:32 11/24/16 08:32 11/24/16 08:32 Intake & Output 11/23/16 11/24/16 11/25/16 06:59 06:59 06:59 Intake Total 3048 1500 Balance 3048 1500 Weight 80 kg 80.1 kg General appearance: PRESENT: no acute distress Eye exam: PRESENT: conjunctiva pink. ABSENT: scleral icterus Mouth exam: PRESENT: moist, tongue midline Neck exam: ABSENT: carotid bruit, JVD, lymphadenopathy, thyromegaly Respiratory exam: PRESENT: clear to auscultation [place]. ABSENT: rales, rhonchi, wheezes Cardiovascular exam: PRESENT: RRR. ABSENT: diastolic murmur, rubs, systolic murmur GI/Abdominal exam: PRESENT: normal bowel sounds, soft. ABSENT: distended, guarding, mass, organolmegaly, rebound, tenderness Extremities exam: ABSENT: calf tenderness, clubbing, pedal edema Neurological exam: PRESENT: awake, oriented to person. ABSENT: oriented to place, oriented to time, oriented to situation Psychiatric exam: PRESENT: flat affect Skin exam: PRESENT: other - Eczema-like rash on his face Results Laboratory Results: 11/24/16 05:15 11/24/16 05:15 11/24/16 11/24/16 05:15 05:15 WBC 9.5 RBC 5.13 Hgb 16.2 Hct 48.2 MCV 94 MCH 31.7 MCHC 33.6 RDW 14.0 Plt Count 261 Seg Neutrophils % 84.1 H Lymphocytes % 7.2 L Monocytes % 8.0 Eosinophils % 0.1 Basophils % 0.6 Absolute Neutrophils 7.9 Absolute Lymphocytes 0.7 Absolute Monocytes 0.8 Absolute Eosinophils 0.0 Absolute Basophils 0.1 Sodium 141.2 Potassium 3.6 Chloride 108 H Carbon Dioxide 18 L Anion Gap 15 BUN 7 Creatinine 0.69 Est GFR ( Amer) > 60 Est GFR (Non-Af Amer) > 60 Glucose 124 H Calcium 9.2 11/18/16 21:55 Blood Blood Culture - Final NO GROWTH IN 5 DAYS 11/18/16 19:30 Blood Blood Culture - Final NO GROWTH IN 5 DAYS Impressions: Abdomen/Pelvis CT 11/18/16 10:17 IMPRESSION: NO SIGNIFICANT OR ACUTE FINDING IN THE ABDOMEN OR PELVIS ON CT SCAN WITH IV CONTRAST. Head CT 11/22/16 00:00 IMPRESSION: CHRONIC CHANGES OF ATROPHY AND MICROVASCULAR ISCHEMIA. NO ACUTE PROCESS. KUB X-Ray 11/24/16 07:47 IMPRESSION: TIP OF THE NASOGASTRIC TUBE IN THE STOMACH. NO RADIOGRAPHIC EVIDENCE FOR ACUTE ABDOMINAL DISEASE. Assessment & Plan - Diagnosis (1) Encephalopathy Is this a current diagnosis for this admission?: YesPlan: The patient has dementia baseline but has gotten worse over the last week. He is noted to have a urinary tract infection as well as C. difficile colitis. I assume that his worsening encephalopathy is most likely secondary to his urinary tract infection. We will continue IV fluids and IV Rocephin for his UTI and vancomycin and Flagyl po for his C. difficile colitis. Patient does have right-sided weakness but has had a previous CVA. CT was negative for any acute event. He cannot lay still enough for an MRI (2) UTI (urinary tract infection) Qualifiers: Urinary tract infection type: site unspecified Hematuria presence: with hematuria Qualified Code(s): N39.0 - Urinary tract infection, site not specified Is this a current diagnosis for this admission?: YesPlan: Continue Rocephin. Cultures are negative so far. (3) C. difficile diarrhea Is this a current diagnosis for this admission?: YesPlan: Continue with Flagyl and vancomycin p.o. refused to take his oral medications last night and we will place NG tube today. (4) Atrial fibrillation Is this a current diagnosis for this admission?: YesPlan: Currently is in a regular rhythm. He has been on atenolol for rate control and Eliquis for anticoagulation. (5) Hyperlipidemia Is this a current diagnosis for this admission?: YesPlan: Patient has been on Pravachol as an outpatient (6) Hypertension Is this a current diagnosis for this admission?: YesPlan: Has been taking atenolol. (7) COPD (chronic obstructive pulmonary disease) Is this a current diagnosis for this admission?: YesPlan: No wheezing on exam. We will give nebulizers as needed. (8) Gastroesophageal reflux disease Is this a current diagnosis for this admission?: YesPlan: Has been on Prilosec as an outpatient. (9) Dementia Qualifiers: Dementia type: unspecified type Dementia behavioral disturbance: with behavioral disturbance Qualified Code(s): F03.91 - Unspecified dementia with behavioral disturbance; F10.97 - Alcohol use, unspecified with alcohol- induced persisting dementia Is this a current diagnosis for this admission?: YesPlan: Mental status has gotten worse over the last week associated with his urinary tract infection. He is on Aricept, Prozac. - Time Time Spent with patient: 25-34 minutes - Inpatient Certification Medical Necessity: Need Close Monitoring Due to Risk of Patient Decompensation, Need for IV Antibiotics - Plan Summary Plan Summary: The patient most likely need to go to a short-term rehab after this hospitalization because of his weakness. His is having difficulty caring for him at this time.
[2016-11-24] MEDS: FLUOXETINE HCL 20 MG/5 ML UDCUP NG SCH (11:56)
[2016-11-24] MEDS: HYDRALAZINE HCL INJ/PF 20 MG/1 ML SDV IV PRN (20:14)
[2016-11-25 04:44] LABS: ABSOLUTE EOSINOPHILS # (AUTO) 0.1 10^3/uL (0.0-0.6); ABSOLUTE LYMPHOCYTES (AUTO) 0.9 10^3/uL (0.5-4.7); ABSOLUTE NEUT (AUTO) 8.2 10^3/uL (1.7-8.2); BASOPHILS % (AUTO) 0.3 % (0-2); EOSINOPHILS % (AUTO) 0.6 % (0-6); HEMOGLOBIN 16.6 g/dL (13.5-17.0); HGB HCT DIFFERENCE 0.8; LYMPHOCYTES % (AUTO) 9.1 % (13-45); MEAN CORPUSCULAR HGB CONC 33.9 g/dL (32.0-36.0); MEAN CORPUSCULAR VOLUME 94 fl (80-97); RED CELL DISTRIBUTION WIDTH 13.7 % (11.5-14.0); WHITE BLOOD COUNT 10.3 10^3/uL (4.0-10.5)
[2016-11-25 05:07] LABS: ANION GAP 11 (5-19); BLOOD UREA NITROGEN 12 mg/dL (7-20); CALCIUM 9.2 mg/dL (8.4-10.2); CARBON DIOXIDE 24 mmol/L (22-30); CHLORIDE 108 mmol/L (98-107); CREATININE RESULT 0.72 mg/dL (0.52-1.25); GLUCOSE 107 mg/dL (75-110); POTASSIUM 3.2 mmol/L (3.6-5.0); SODIUM 142.8 mmol/L (137-145)
[2016-11-25] MEDS: VANCOMYCIN HCL INJ 500 MG VIAL NG SCH ×3 (05:25→18:17)
[2016-11-25] MEDS: METRONIDAZOLE 500 MG TABLET NG SCH (05:25)
[2016-11-25] MEDS ORDERED: LORAZEPAM INJ 2 MG/1 ML VIAL IV PRN (09:57)
[2016-11-25] MEDS ORDERED: LEVETIRACETAM 1000 MG/NACL-ISO 100 ML IV ONE (09:58)
[2016-11-25] MEDS ORDERED: DEXTROSE 5%-NORMAL SALINE 1,000 ML IV PRN (10:00)
--- NOTE | 2016-11-25 10:10 | PDOC PROGRESS REPORT ---
Subjective Progress Note for:: 11/25/16 Subjective:: Patient reportedly not improving. Patient continues to have diarrhea. Reportedly that the patient does not swallow the medication and therefore a nasogastric tube was placed yesterday. Patient had 7 doses of ceftriaxone for urinary tract infection. Mental status has not improved. Oral intake has been poor for the past 2 weeks according to the . Patient is a DNR. No reported respiratory distress. Noted shaking on the extremities intermittently. Patient had a history of seizure in the past according to the family. Physical Exam Vital Signs: Temp Pulse Resp BP Pulse Ox 97.4 F 50 L 18 188/80 H 99 11/25/16 07:30 11/25/16 07:30 11/25/16 07:30 11/25/16 08:20 11/25/16 07:30 Intake & Output 11/24/16 11/25/16 11/26/16 06:59 06:59 06:59 Intake Total 1500 1200 Output Total 1 Balance 1500 1199 Weight 80.1 kg 80.4 kg General appearance: PRESENT: no acute distress, other - Nonverbal at this time Head exam: PRESENT: normocephalic Mouth exam: PRESENT: moist, neck supple Neck exam: ABSENT: JVD Respiratory exam: PRESENT: clear to auscultation preston. ABSENT: rhonchi, wheezes Cardiovascular exam: PRESENT: RRR. ABSENT: gallop GI/Abdominal exam: PRESENT: hypoactive bowel sounds, soft. ABSENT: distended Extremities exam: ABSENT: pedal edema Neurological exam: PRESENT: altered Psychiatric exam: ABSENT: agitated Focused psych exam: ABSENT: restlessness Skin exam: PRESENT: dry, warm. ABSENT: cyanosis Results Laboratory Results: 11/25/16 04:16 11/25/16 04:16 11/25/16 11/25/16 04:16 04:16 WBC 10.3 RBC 5.20 Hgb 16.6 Hct 49.0 MCV 94 MCH 32.0 MCHC 33.9 RDW 13.7 Plt Count 238 Seg Neutrophils % 80.0 H Lymphocytes % 9.1 L Monocytes % 10.0 Eosinophils % 0.6 Basophils % 0.3 Absolute Neutrophils 8.2 Absolute Lymphocytes 0.9 Absolute Monocytes 1.0 Absolute Eosinophils 0.1 Absolute Basophils 0.0 Sodium 142.8 Potassium 3.2 L Chloride 108 H Carbon Dioxide 24 Anion Gap 11 BUN 12 Creatinine 0.72 Est GFR ( Amer) > 60 Est GFR (Non-Af Amer) > 60 Glucose 107 Calcium 9.2 Impressions: Abdomen/Pelvis CT 11/18/16 10:17 IMPRESSION: NO SIGNIFICANT OR ACUTE FINDING IN THE ABDOMEN OR PELVIS ON CT SCAN WITH IV CONTRAST. Head CT 11/22/16 00:00 IMPRESSION: CHRONIC CHANGES OF ATROPHY AND MICROVASCULAR ISCHEMIA. NO ACUTE PROCESS. KUB X-Ray 11/24/16 07:47 IMPRESSION: TIP OF THE NASOGASTRIC TUBE IN THE STOMACH. NO RADIOGRAPHIC EVIDENCE FOR ACUTE ABDOMINAL DISEASE. Assessment & Plan - Diagnosis (1) Encephalopathy Is this a current diagnosis for this admission?: Yes (2) C. difficile diarrhea Is this a current diagnosis for this admission?: Yes (3) UTI (urinary tract infection) Qualifiers: Urinary tract infection type: site unspecified Hematuria presence: with hematuria Qualified Code(s): N39.0 - Urinary tract infection, site not specified Is this a current diagnosis for this admission?: Yes (4) Seizure disorder Is this a current diagnosis for this admission?: Yes (5) Atrial fibrillation Qualifiers: Atrial fibrillation type: chronic Qualified Code(s): I48.2 - Chronic atrial fibrillation Is this a current diagnosis for this admission?: Yes (6) COPD (chronic obstructive pulmonary disease) Qualifiers: COPD type: unspecified COPD Qualified Code(s): J44.9 - Chronic obstructive pulmonary disease, unspecified Is this a current diagnosis for this admission?: Yes (7) Gastroesophageal reflux disease Qualifiers: Esophagitis presence: esophagitis presence not specified Qualified Code(s): K21.9 - Gastro-esophageal reflux disease without esophagitis Is this a current diagnosis for this admission?: Yes (8) Hyperlipidemia Qualifiers: Hyperlipidemia type: unspecified Qualified Code(s): E78.5 - Hyperlipidemia, unspecified Is this a current diagnosis for this admission?: Yes (9) Hypertension Qualifiers: Hypertension type: essential hypertension Qualified Code(s): I10 - Essential (primary) hypertension Is this a current diagnosis for this admission?: Yes (10) History of stroke Is this a current diagnosis for this admission?: Yes (11) Dementia Qualifiers: Dementia type: unspecified type Dementia behavioral disturbance: without behavioral disturbance Qualified Code(s): F03.90 - Unspecified dementia without behavioral disturbance Is this a current diagnosis for this admission?: Yes - Time Time Spent with patient: 25-34 minutes - Plan Summary Plan Summary: We will try the patient on Ativan and Keppra. We will have a PICC line placed. Change IV fluid to dextrose containing solution. Discontinue ceftriaxone. Culture has been negative. Change Flagyl to intravenous. If the patient's mental status does not improve consider comfort measures or repeat head CT scan or MRI.
[2016-11-25] MEDS ORDERED: LORAZEPAM INJ 2 MG/1 ML VIAL ONE (10:12)
[2016-11-25] MEDS: APIXABAN 5 MG TABLET NG SCH ×2 (10:17→22:44)
[2016-11-25] MEDS: DONEPEZIL HCL 5 MG TABLET NG SCH (10:17)
[2016-11-25] MEDS: FAMOTIDINE 20 MG TABLET NG SCH ×2 (10:17→22:45)
[2016-11-25] MEDS: CLOTRIMAZOLE/BETAMETHASONE DIP CREAM 15 GM TOP SCH ×2 (10:30→18:21)
[2016-11-25] MEDS ORDERED: LEVETIRACETAM 1000 MG/NACL-ISO 1,000 MG/100 ML RTUPB IV ONE (12:15)
[2016-11-25] MEDS: FLUOXETINE HCL 20 MG/5 ML UDCUP NG SCH (12:56)
[2016-11-25] MEDS: METRONIDAZOLE 500 MG/NS RTU 100 ML IV SCH ×2 (12:56→18:21)
[2016-11-25] MEDS: HYDRALAZINE HCL INJ/PF 20 MG/1 ML SDV IV PRN ×2 (12:57→15:36)
[2016-11-25] MEDS: ATENOLOL 50 MG TABLET NG SCH (12:59)
--- NOTE | 2016-11-25 16:12 | RADIOLOGY REPORT (SQ) ---
EXAM DESCRIPTION: PICC INSERTION; FLUORO/CV PLACEMENT; U/S GUIDE FOR VASCULAR ACCESS COMPLETED DATE/TIME: 11/25/2016 2:37 pm; 11/25/2016 2:35 pm REASON FOR STUDY: IV fluids, antibiotics, poor IV access's; IV PLACEMENT COMPARISON: None. FLUOROSCOPY TIME: 3 minutes. 4 images saved to PACS. TECHNIQUE: Fluoroscopic and ultrasound guided PICC placement. LIMITATIONS: None. PROCEDURE: After written consent and assessment were obtained, the patient was brought into the fluo roscopy room and place supine on the table. Ultrasound was used on the patient's right arm for PICC access. The right arm was prepped and draped in a sterile fashion along with the ultrasound probe. Th e entry site was anesthetized with 1% lidocaine. A 21 gauge 7 cm needle was advanced through the skin and into the basilic vein under live ultrasound guidance. An ultrasound image was saved to PACS con firming access site. A .018 guide wire was then inserted through the needle and into the venous syst em. The needle was the removed and an 11 blade scalpel was used to make a 1cm skin incision. A 5 fr peel-away sheath was advanced over the wire and into the venous system. A measurement was then made u sing the existing wire and live fluoroscopic guidance. The wire was then removed and the trimmed. The PICC was advanced through the peel-away sheath and into the venous system. The peel-away sheath was removed and the catheter was adhered to the patients arm with a stat lock. The catheter was then aspi rated and flushed and a sterile bandage was placed over the access site. A fluoroscopic spot image w as saved to PACS confirming the catheter tip within the superior vena cava. IMPRESSION: SUCCESSFUL PLACEMENT OF A 5 FR DUAL LUMEN 36 CM PICC IN THE RIGHT BASILIC VEIN. COMMENT: Patient medication list reviewed: Yes- Quality ID# [id number]:Eligible professional attests to doc umenting in the medical record they obtained, updated, or reviewed the patient's current medications. . Quality ID 145: Final reports for procedures using fluoroscopy that document radiation exposure nitesh cassandra, or exposure time and number of fluorographic images (if radiation exposure indices are not avail able) Quality ID #76: The patient was prepped and draped using maximum sterile barrier technique including cap, mask, sterile gown, sterile gloves, a large sterile sheet, hand hygiene, and 2% Chlorhexidine fo r cutaneous antisepsis. When ultrasound is used, sterile ultrasound techniques are followed requiring sterile gel and sterile probes. TECHNICAL DOCUMENTATION: JOB ID: [id number] [employer]- All Rights Reserved
--- NOTE | 2016-11-25 20:01 | RADIOLOGY REPORT (SQ) ---
EXAM DESCRIPTION: MRI HEAD WITHOUT COMPLETED DATE/TIME: 11/25/2016 7:17 pm REASON FOR STUDY: lethargy, nonresponsiven COMPARISON: 11/22/2016 TECHNIQUE: Multiplanar imaging includes non-contrasted T1, T2, FLAIR, and diffusion with ADC map seq uences. Images stored on PACS. LIMITATIONS: None. FINDINGS: ANATOMY: No anomalies. Normal vascular flow voids. Pituitary fossa normal. CSF SPACES: Atrophy induced prominence of ventricles and CSF spaces. CEREBRUM: High signal intensity lesions scattered throughout the white matter on FLAIR imaging with d istribution suggesting micro-vascular ischemic changes. No evidence of hemorrhage, mass, or extraaxi al fluid collection. POSTERIOR FOSSA: No signal alteration. No hemorrhage. No edema, masses or mass effect. Internal sincere tory canals, cerebello-pontine angles, mastoids normal. DIFFUSION IMAGING: Negative for acute or sub-acute infarction. ORBITS: No masses. Globes normal. PARANASAL SINUSES: No fluid levels. Mucosa normal. OTHER: No other significant finding. IMPRESSION: ATROPHY AND CHRONIC MICRO-VASCULAR ISCHEMIC CHANGES. OTHERWISE NORMAL MRI OF THE BRAIN W ITHOUT INTRAVENOUS GADOLINIUM CONTRAST. EVIDENCE OF ACUTE STROKE: NO. TECHNICAL DOCUMENTATION: JOB ID: [id number] [email or web address]- All Rights Reserved
[2016-11-26] MEDS: METRONIDAZOLE 500 MG/NS RTU 100 ML IV SCH ×5 (00:01→23:36)
[2016-11-26] MEDS: VANCOMYCIN HCL INJ 500 MG VIAL NG SCH (00:01)
[2016-11-26] MEDS ORDERED: NORMAL SALINE 10 ML SDV (AFTER EACH USE) IV PRN (08:51)
[2016-11-26] MEDS: NORMAL SALINE 10 ML SDV (SCHEDULED) IV SCH ×2 (10:03→21:35)
[2016-11-26] MEDS: ATENOLOL 50 MG TABLET NG SCH (10:19)
[2016-11-26] MEDS: FLUOXETINE HCL 20 MG/5 ML UDCUP NG SCH (10:19)
[2016-11-26] MEDS: APIXABAN 5 MG TABLET NG SCH ×2 (10:19→21:28)
[2016-11-26] MEDS: DONEPEZIL HCL 5 MG TABLET NG SCH (10:19)
[2016-11-26] MEDS: FAMOTIDINE 20 MG TABLET NG SCH ×2 (10:19→21:27)
[2016-11-26] MEDS: CLOTRIMAZOLE/BETAMETHASONE DIP CREAM 15 GM TOP SCH ×2 (10:20→17:21)
--- NOTE | 2016-11-26 11:36 | PDOC PROGRESS REPORT ---
Subjective Progress Note for:: 11/26/16 Subjective:: Patient remains nonverbal and nonresponsive. Shaking still present. Patient on IV Keppra. No reported temperature spikes or respiratory distress. No reported diarrhea at this time. No nausea or vomiting as well. On nasogastric tube just for medication. Family has not decided regarding comfort measures yet. Physical Exam Vital Signs: Temp Pulse Resp BP Pulse Ox 98.4 F 58 L 18 168/77 H 99 11/26/16 07:40 11/26/16 07:40 11/25/16 22:43 11/26/16 07:40 11/26/16 07:40 Intake & Output 11/25/16 11/26/16 11/27/16 06:59 06:59 06:59 Intake Total 1200 1500 Output Total 1 Balance 1199 1500 Weight 80.4 kg 80.4 kg General appearance: PRESENT: no acute distress, other - Nonverbal on nasogastric tube. Mouth exam: PRESENT: moist, neck supple Neck exam: ABSENT: JVD Respiratory exam: PRESENT: clear to auscultation preston - Anteriorly bilateral, decreased breath sounds - Poor effort. ABSENT: rhonchi, wheezes Cardiovascular exam: PRESENT: RRR. ABSENT: gallop GI/Abdominal exam: PRESENT: hypoactive bowel sounds, soft. ABSENT: distended, tenderness Extremities exam: ABSENT: pedal edema Neurological exam: PRESENT: altered Skin exam: PRESENT: dry, warm. ABSENT: cyanosis Results Laboratory Results: 11/25/16 04:16 11/25/16 04:16 Impressions: Abdomen/Pelvis CT 11/18/16 10:17 IMPRESSION: NO SIGNIFICANT OR ACUTE FINDING IN THE ABDOMEN OR PELVIS ON CT SCAN WITH IV CONTRAST. Head CT 11/22/16 00:00 IMPRESSION: CHRONIC CHANGES OF ATROPHY AND MICROVASCULAR ISCHEMIA. NO ACUTE PROCESS. KUB X-Ray 11/24/16 07:47 IMPRESSION: TIP OF THE NASOGASTRIC TUBE IN THE STOMACH. NO RADIOGRAPHIC EVIDENCE FOR ACUTE ABDOMINAL DISEASE. Guidance Fluoroscopy 11/25/16 00:00 IMPRESSION: SUCCESSFUL PLACEMENT OF A 5 FR DUAL LUMEN 36 CM PICC IN THE RIGHT BASILIC VEIN. Head MRI 11/25/16 00:00 IMPRESSION: ATROPHY AND CHRONIC MICRO-VASCULAR ISCHEMIC CHANGES. OTHERWISE NORMAL MRI OF THE BRAIN WITHOUT INTRAVENOUS GADOLINIUM CONTRAST. EVIDENCE OF ACUTE STROKE: NO. Interventional Vascular Procedure 11/25/16 00:00 IMPRESSION: SUCCESSFUL PLACEMENT OF A 5 FR DUAL LUMEN 36 CM PICC IN THE RIGHT BASILIC VEIN. PICC Line Insertion 11/25/16 00:00 IMPRESSION: SUCCESSFUL PLACEMENT OF A 5 FR DUAL LUMEN 36 CM PICC IN THE RIGHT BASILIC VEIN. Assessment & Plan - Diagnosis (1) Encephalopathy Is this a current diagnosis for this admission?: Yes (2) C. difficile diarrhea Is this a current diagnosis for this admission?: Yes (3) UTI (urinary tract infection) Qualifiers: Urinary tract infection type: site unspecified Hematuria presence: with hematuria Qualified Code(s): N39.0 - Urinary tract infection, site not specified Is this a current diagnosis for this admission?: Yes (4) Seizure disorder Is this a current diagnosis for this admission?: Yes (5) Atrial fibrillation Qualifiers: Atrial fibrillation type: chronic Qualified Code(s): I48.2 - Chronic atrial fibrillation Is this a current diagnosis for this admission?: Yes (6) COPD (chronic obstructive pulmonary disease) Qualifiers: COPD type: unspecified COPD Qualified Code(s): J44.9 - Chronic obstructive pulmonary disease, unspecified Is this a current diagnosis for this admission?: Yes (7) Gastroesophageal reflux disease Qualifiers: Esophagitis presence: esophagitis presence not specified Qualified Code(s): K21.9 - Gastro-esophageal reflux disease without esophagitis Is this a current diagnosis for this admission?: Yes (8) Hyperlipidemia Qualifiers: Hyperlipidemia type: unspecified Qualified Code(s): E78.5 - Hyperlipidemia, unspecified Is this a current diagnosis for this admission?: Yes (9) Hypertension Qualifiers: Hypertension type: essential hypertension Qualified Code(s): I10 - Essential (primary) hypertension Is this a current diagnosis for this admission?: Yes (10) History of stroke Is this a current diagnosis for this admission?: Yes (11) Dementia Qualifiers: Dementia type: unspecified type Dementia behavioral disturbance: without behavioral disturbance Qualified Code(s): F03.90 - Unspecified dementia without behavioral disturbance Is this a current diagnosis for this admission?: Yes - Time Time Spent with patient: 25-34 minutes - Plan Summary Plan Summary: We are going to obtain an EEG. At this point, may help family regarding decision in terms of comfort measures. In the meantime family reports patient was seen by neurology Dr. Esparza in the past we will therefore consult him and get his opinion. Continue Flagyl, add lactobacillus, check electrolytes. We will likewise check thyroid panel.
[2016-11-26 12:55] LABS: ANION GAP 7 (5-19); BLOOD UREA NITROGEN 11 mg/dL (7-20); CARBON DIOXIDE 26 mmol/L (22-30); CHLORIDE 110 mmol/L (98-107); GLUCOSE 128 mg/dL (75-110); MAGNESIUM 1.8 mg/dL (1.6-2.3); SODIUM 143.1 mmol/L (137-145)
[2016-11-26 12:59] LABS: POTASSIUM 2.5 mmol/L (3.6-5.0)
[2016-11-26 13:24] LABS: THYROID STIMULATING HORMONE 2.03 uIU/mL (0.47-4.68)
[2016-11-26] MEDS: POTASSIUM CHLORIDE 20 MEQ/50 ML RTU IV SCH ×4 (14:18→21:16)
[2016-11-26] MEDS: LACTOBACILLUS ACIDOPHILUS 250 MG TAB NG SCH (17:16)
[2016-11-26] MEDS: HYDRALAZINE HCL INJ/PF 20 MG/1 ML SDV IV PRN (21:26)
[2016-11-27] MEDS: HYDRALAZINE HCL INJ/PF 20 MG/1 ML SDV IV PRN (04:37)
[2016-11-27] MEDS: METRONIDAZOLE 500 MG/NS RTU 100 ML IV SCH ×2 (05:51→11:17)
[2016-11-27] MEDS: LACTOBACILLUS ACIDOPHILUS 250 MG TAB NG SCH (11:17)
[2016-11-27] MEDS: NORMAL SALINE 10 ML SDV (SCHEDULED) IV SCH (11:17)
[2016-11-27] MEDS: APIXABAN 5 MG TABLET NG SCH (11:17)
[2016-11-27] MEDS: FAMOTIDINE 20 MG TABLET NG SCH (11:17)
[2016-11-27] MEDS: DONEPEZIL HCL 5 MG TABLET NG SCH (11:17)
[2016-11-27] MEDS: CLOTRIMAZOLE/BETAMETHASONE DIP CREAM 15 GM TOP SCH (11:17)
[2016-11-27] MEDS: ATENOLOL 50 MG TABLET NG SCH (11:17)
[2016-11-27] MEDS: FLUOXETINE HCL 20 MG/5 ML UDCUP NG SCH (11:17)
[2016-11-27] MEDS ORDERED: MORPHINE SULFATE 10 MG/ML INJ IV PRN (11:46)
[2016-11-27 11:47] VITALS: BP 176/96
--- NOTE | 2016-11-27 11:54 | PDOC PROGRESS REPORT ---
Subjective Progress Note for:: 11/27/16 Subjective:: Patient remains nonverbal and nonresponsive. Shaking still present. No reported temperature spikes or respiratory distress. No reported diarrhea at this time. No nausea or vomiting as well. On nasogastric tube just for medication but now the tube is obstructed. Family does not want resuming nasogastric tube. Family has now decided comfort measures. Physical Exam Vital Signs: Temp Pulse Resp BP Pulse Ox 99.7 F 96 18 176/96 H 96 11/27/16 11:46 11/27/16 11:46 11/27/16 11:46 11/27/16 11:46 11/27/16 11:46 Intake & Output 11/26/16 11/27/16 11/28/16 06:59 06:59 06:59 Intake Total 1500 2247 Output Total 0 Balance 1500 2247 Weight 80.4 kg 80.5 kg General appearance: PRESENT: no acute distress, obese, other - Nasogastric tube in place Head exam: PRESENT: normocephalic Mouth exam: PRESENT: moist, neck supple Neck exam: ABSENT: JVD Respiratory exam: PRESENT: rhonchi - few Cardiovascular exam: PRESENT: RRR GI/Abdominal exam: PRESENT: soft. ABSENT: distended, tenderness Neurological exam: PRESENT: altered Skin exam: PRESENT: dry, warm. ABSENT: cyanosis Results Laboratory Results: 11/25/16 04:16 11/26/16 12:15 11/26/16 11/26/16 12:15 12:15 Sodium 143.1 Potassium 2.5 L* Chloride 110 H Carbon Dioxide 26 Anion Gap 7 BUN 11 Creatinine 0.60 Est GFR ( Amer) > 60 Est GFR (Non-Af Amer) > 60 Glucose 128 H Calcium 8.0 L Magnesium 1.8 TSH 2.03 Free T4 1.83 Impressions: Abdomen/Pelvis CT 11/18/16 10:17 IMPRESSION: NO SIGNIFICANT OR ACUTE FINDING IN THE ABDOMEN OR PELVIS ON CT SCAN WITH IV CONTRAST. Head CT 11/22/16 00:00 IMPRESSION: CHRONIC CHANGES OF ATROPHY AND MICROVASCULAR ISCHEMIA. NO ACUTE PROCESS. KUB X-Ray 11/24/16 07:47 IMPRESSION: TIP OF THE NASOGASTRIC TUBE IN THE STOMACH. NO RADIOGRAPHIC EVIDENCE FOR ACUTE ABDOMINAL DISEASE. Guidance Fluoroscopy 11/25/16 00:00 IMPRESSION: SUCCESSFUL PLACEMENT OF A 5 FR DUAL LUMEN 36 CM PICC IN THE RIGHT BASILIC VEIN. Head MRI 11/25/16 00:00 IMPRESSION: ATROPHY AND CHRONIC MICRO-VASCULAR ISCHEMIC CHANGES. OTHERWISE NORMAL MRI OF THE BRAIN WITHOUT INTRAVENOUS GADOLINIUM CONTRAST. EVIDENCE OF ACUTE STROKE: NO. Interventional Vascular Procedure 11/25/16 00:00 IMPRESSION: SUCCESSFUL PLACEMENT OF A 5 FR DUAL LUMEN 36 CM PICC IN THE RIGHT BASILIC VEIN. PICC Line Insertion 11/25/16 00:00 IMPRESSION: SUCCESSFUL PLACEMENT OF A 5 FR DUAL LUMEN 36 CM PICC IN THE RIGHT BASILIC VEIN. Assessment & Plan - Diagnosis (1) Encephalopathy Is this a current diagnosis for this admission?: Yes (2) C. difficile diarrhea Is this a current diagnosis for this admission?: Yes (3) UTI (urinary tract infection) Qualifiers: Urinary tract infection type: site unspecified Hematuria presence: with hematuria Qualified Code(s): N39.0 - Urinary tract infection, site not specified Is this a current diagnosis for this admission?: Yes (4) Seizure disorder Is this a current diagnosis for this admission?: Yes (5) Atrial fibrillation Qualifiers: Atrial fibrillation type: chronic Qualified Code(s): I48.2 - Chronic atrial fibrillation Is this a current diagnosis for this admission?: Yes (6) COPD (chronic obstructive pulmonary disease) Qualifiers: COPD type: unspecified COPD Qualified Code(s): J44.9 - Chronic obstructive pulmonary disease, unspecified Is this a current diagnosis for this admission?: Yes (7) Gastroesophageal reflux disease Qualifiers: Esophagitis presence: esophagitis presence not specified Qualified Code(s): K21.9 - Gastro-esophageal reflux disease without esophagitis Is this a current diagnosis for this admission?: Yes (8) Hyperlipidemia Qualifiers: Hyperlipidemia type: unspecified Qualified Code(s): E78.5 - Hyperlipidemia, unspecified Is this a current diagnosis for this admission?: Yes (9) Hypertension Qualifiers: Hypertension type: essential hypertension Qualified Code(s): I10 - Essential (primary) hypertension Is this a current diagnosis for this admission?: Yes (10) History of stroke Is this a current diagnosis for this admission?: Yes (11) Dementia Qualifiers: Dementia type: unspecified type Dementia behavioral disturbance: without behavioral disturbance Qualified Code(s): F03.90 - Unspecified dementia without behavioral disturbance Is this a current diagnosis for this admission?: Yes - Time Time Spent with patient: 25-34 minutes - Plan Summary Plan Summary: We will start comfort measures today. Consult hospice for inpatient admission. We will begin intravenous morphine as needed for pain and discomfort. We will discontinue antibiotics antihypertensives and antiseizure medications. Give supplemental oxygen. Discussed in length with family was at bedside and agreeable with the plan.
--- NOTE | 2016-11-27 13:05 | EEG PRO FEE REPORT ---
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 There is no clear burst suppression pattern on this EEG, but one does see periodic sharp activity more on the left side than on the right at times. There is a great deal of motion artifact one does see some jerking movements almost looking like myoclonus or even chorea at times these are very short lived. Overall the record is slow also implying generalized cerebral dysfunction such as from a generalized cause. Again no clear burst suppression pattern is identified though. IMPRESSION Abnormal EEG consistent with generalized slowing compatible with generalized cerebral dysfunction such as from a generalized cause one of several episodes of periodic sharp activity more on the left than the right but generalized; could be seen in early Creutzfeldt-Lenny no burst suppression pattern is seen however. INTERPRETING PHYSICIAN: TABITHA REYES M.D. /: BOBBY TT: [id number] ID: [id number] /: [id number] TD: [id number] JOB: [id number] cc:Zane DING M.D. > MTDD
[2016-11-28] MEDS: NORMAL SALINE 10 ML SDV (SCHEDULED) IV SCH ×2 (00:39→09:54)
--- NOTE | 2016-11-28 11:04 | PDOC DISCHARGE SUMMARY ---
General - Admit/Disc Date/PCP Admission Date/Primary Care Provider: 11/18/16 16:48 Discharge Date: 11/28/16 - Discharge Diagnosis (1) Encephalopathy Is this a current diagnosis for this admission?: Yes (2) C. difficile diarrhea Is this a current diagnosis for this admission?: Yes (3) UTI (urinary tract infection) Is this a current diagnosis for this admission?: Yes (4) Seizure disorder Is this a current diagnosis for this admission?: Yes (5) Atrial fibrillation Is this a current diagnosis for this admission?: Yes (6) COPD (chronic obstructive pulmonary disease) Is this a current diagnosis for this admission?: Yes (7) Gastroesophageal reflux disease Is this a current diagnosis for this admission?: Yes (8) Hyperlipidemia Is this a current diagnosis for this admission?: Yes (9) Hypertension Is this a current diagnosis for this admission?: Yes (10) History of stroke Is this a current diagnosis for this admission?: Yes (11) Dementia Is this a current diagnosis for this admission?: Yes - Additional Information Resuscitation Status: Do Not Resuscitate Discharge Diet: As Tolerated Discharge Activity: Activity As Tolerated Home Medications: Acetaminophen [Tylenol Soln 325 mg/10.15 ml Udcup] 650 mg NG Q4HP PRN udc 11/28 Albuterol Sulfate [Ventolin 0.083% Neb 2.5 mg/3 mL Ampul] 2.5 mg NEB RTQ4HP PRN vial.neb 11/28/16 Morphine Sulfate [Morphine 10 mg/ml Inj] 2 mg IV Q4HP PRN vial 11/28/16 Additional Information: In-patient hospice History of Present Illness Patient complains of: Change in mental status and decreased appetite History of Present Illness: AUTUMN MELCHOR is a 76 year old male who has dementia baseline who was brought in by his with a 7 day history of anorexia and worsening abdominal pain. Patient was seen several weeks ago and sent home with antibiotics for C. difficile colitis. Patient has been taking antibiotics but is continued to have diarrhea and over the last 7 days has had decreased p.o. intake. Patient' s also reports is been more combative and has stopped eating or drinking. He has not had any fevers or chills but has had some rigors in the evening. Patient also was noted to have a urinary tract infection when an I&O catheter was placed. The patient has been taking Flagyl 500 mg every 6 hours. The patient has not had any bloody stool. Has had lower abdominal pain. He had an abdominal CT scan done in the emergency room which showed no abnormalities. For details please refer to history and physical examination performed by the admitting physician. Hospital Course Hospital Course: The patient was admitted to telemetry. The patient was diagnosed with metabolic encephalopathy probably related to infection. Patient has urinary tract infection and broad-spectrum antibiotic was started. Patient was given intravenous fluids. Electrolytes were monitored and treated accordingly if needed. Patient's mental status did not improve. His course was complicated by Clostridium difficile colitis where lactobacillus and Flagyl were given. His symptoms of colitis eventually improve. Blood and stool cultures were performed that were negative.Nasogastric tube was placed for administration of medications. However despite treatment of infection and hydration there was no significant improvement. The patient's head CT scan did not reveal any acute abnormality. Patient however exhibiting jerking motions but her course possibly related to a seizure and therefore antiseizure medications were started. MRI of the brain was obtained which did not reveal any acute abnormality. EEG was likewise obtained. There was generalized slowing without seizure activity reported. Despite antiseizure medication the patient's mental status did not improve as well. The patient was made DNR by the family earlier. Neurology was consulted and an impression of possible prion related illness or Creutzfeldt Corral disease was made. An lumbar puncture was recommended but the family refused. Reportedly he has been declining since she had a stroke for the last 5 years and therefore they made him comfort measures only. conference planner was consulted and hospice evaluated and accepted the patient. Patient was eventually transferred to inpatient hospice facility when a bed was available. Physical Exam Vital Signs: Temp Pulse Resp BP Pulse Ox 99.7 F 96 18 176/96 H 96 11/27/16 11:46 11/27/16 11:46 11/27/16 11:46 11/27/16 11:46 11/27/16 11:46 Intake & Output 11/27/16 11/28/16 11/29/16 06:59 06:59 06:59 Intake Total 2247 0 Output Total 0 Balance 2247 0 Weight 80.5 kg 82.6 kg General appearance: PRESENT: no acute distress, other - Unresponsive Head exam: PRESENT: normocephalic Eye exam: PRESENT: conjunctiva pale Mouth exam: PRESENT: moist Neck exam: ABSENT: JVD Respiratory exam: PRESENT: rhonchi - Few bilateral. ABSENT: wheezes Cardiovascular exam: PRESENT: RRR. ABSENT: gallop GI/Abdominal exam: PRESENT: hypoactive bowel sounds, soft Extremities exam: ABSENT: pedal edema Neurological exam: PRESENT: altered Psychiatric exam: ABSENT: agitated Focused psych exam: ABSENT: restlessness Skin exam: PRESENT: dry, warm. ABSENT: cyanosis Results Laboratory Results: 11/25/16 04:16 11/26/16 12:15 Impressions: Abdomen/Pelvis CT 11/18/16 10:17 IMPRESSION: NO SIGNIFICANT OR ACUTE FINDING IN THE ABDOMEN OR PELVIS ON CT SCAN WITH IV CONTRAST. Head CT 11/22/16 00:00 IMPRESSION: CHRONIC CHANGES OF ATROPHY AND MICROVASCULAR ISCHEMIA. NO ACUTE PROCESS. KUB X-Ray 11/24/16 07:47 IMPRESSION: TIP OF THE NASOGASTRIC TUBE IN THE STOMACH. NO RADIOGRAPHIC EVIDENCE FOR ACUTE ABDOMINAL DISEASE. Guidance Fluoroscopy 11/25/16 00:00 IMPRESSION: SUCCESSFUL PLACEMENT OF A 5 FR DUAL LUMEN 36 CM PICC IN THE RIGHT BASILIC VEIN. Head MRI 11/25/16 00:00 IMPRESSION: ATROPHY AND CHRONIC MICRO-VASCULAR ISCHEMIC CHANGES. OTHERWISE NORMAL MRI OF THE BRAIN WITHOUT INTRAVENOUS GADOLINIUM CONTRAST. EVIDENCE OF ACUTE STROKE: NO. Interventional Vascular Procedure 11/25/16 00:00 IMPRESSION: SUCCESSFUL PLACEMENT OF A 5 FR DUAL LUMEN 36 CM PICC IN THE RIGHT BASILIC VEIN. PICC Line Insertion 11/25/16 00:00 IMPRESSION: SUCCESSFUL PLACEMENT OF A 5 FR DUAL LUMEN 36 CM PICC IN THE RIGHT BASILIC VEIN. Qualifiers PATEINT BEING DISCHARGED WITH ANY OF THE FOLLOWING DIAGNOSIS?: No Plan Discharge Plan: Follow-up with inpatient hospice facility physician. Time Spent: Less than 30 Minutes
== END 2016-11-28 15:07 | disposition hospice, inpatient (51) | DRG 371 ==
LOC: ER 09:29 → EH 16:37 → UNDOADMIN 16:37 → EH 16:48 → 5 17:55
PROVIDERS: ADMIT Family Medicine; ATTEND Family Medicine
PROC: 0D9670Z Drainage of Stomach with Drainage Device, Via Natural or Artificial Opening (ICD-10-PCS; principal; 2016-11-18)
PROC: 02HV33Z Insertion of Infusion Device into Superior Vena Cava, Percutaneous Approach (ICD-10-PCS; 2016-11-18)
PROC: B5181ZA Fluoroscopy of Superior Vena Cava using Low Osmolar Contrast, Guidance (ICD-10-PCS; 2016-11-18)
PROC: B548ZZA Ultrasonography of Superior Vena Cava, Guidance (ICD-10-PCS; 2016-11-18)
DX: A04.7 Enterocolitis due to Clostridium difficile (principal); G93.41 Metabolic encephalopathy; N39.0 Urinary tract infection, site not specified; F03.91 Unspecified dementia, unspecified severity, with behavioral disturbance; I48.2 Chronic atrial fibrillation; E78.5 Hyperlipidemia, unspecified; I10 Essential (primary) hypertension; J44.9 Chronic obstructive pulmonary disease, unspecified; Z85.51 Personal history of malignant neoplasm of bladder; K21.9 Gastro-esophageal reflux disease without esophagitis; G40.909 Epilepsy, unspecified, not intractable, without status epilepticus; F10.97 Alcohol use, unspecified with alcohol-induced persisting dementia; Z79.899 Other long term (current) drug therapy; Z87.891 Personal history of nicotine dependence; Z66 Do not resuscitate; Z88.8 Allergy status to other drugs, medicaments and biological substances; Z86.73 Personal history of transient ischemic attack (TIA), and cerebral infarction without residual deficits
CPT/HCPCS: 36415; 36569; 70450; 70551; 74000; 74177; 76937; 77001; 80048; 80053; 81001; 83735; 84439; 84443; 85025; 85027; 87040; 87045; 87205; 87493; 95819; 96360; 99285; J0360; J0696; J1630; J1642; J1953; J2060; J2405; J3370; J3480; J3490; J7030; S0119